=== PATIENT | female | born 1930 | race Caucasian/White ===

== ENCOUNTER 2017-05-26 15:08 | Outpatient (CLI) | payer MEDICARE, OTHER ==
[2017-05-26 13:25] LABS: BILIRUBIN,URINE NEGATIVE (NEGATIVE)
[2017-05-26 13:26] LABS: UA w/ MICROSCOPIC CHARGE YES
[2017-05-26 13:30] LABS: UR CULTURE IF IND INDICATED
[2017-05-26 13:32] LABS: WBC,URINE >25 /HPF (0-5)
== END 2017-05-26 15:09 | disposition home or self-care (01) ==
LOC: LAB.N 15:08
PROVIDERS: ATTEND Internal Medicine
DX: N30.00 Acute cystitis without hematuria (principal)
CPT/HCPCS: 81001; 81003; 87086

== ENCOUNTER 2017-09-02 10:32 | Outpatient (CLI) | payer MEDICARE, OTHER | END 2017-09-02 10:33 | disposition home or self-care (01) | LOC: LAB.N 10:32 | PROVIDERS: ATTEND Internal Medicine | DX: E03.9 Hypothyroidism, unspecified (principal) | CPT/HCPCS: 36415; 84443 ==

== ENCOUNTER 2018-03-28 11:37 | Outpatient (CLI) | payer MEDICARE, OTHER | END 2018-03-28 11:38 | disposition critical access hospital (66) | LOC: EMS 11:37 | PROVIDERS: ATTEND Surgery | DX: R55 Syncope and collapse (principal) | CPT/HCPCS: A0425; A0427 ==

== ENCOUNTER 2018-03-28 12:02 | Observation (INO) | payer MEDICARE, OTHER ==
--- NOTE | 2018-03-28 12:11 | ED Physician Documentation ---
History of Present Illness - Stated complaint Stated Complaint: Syncope - Chief complaint Chief Complaint: Cardiac - Additonal information Additional information: hx from pt 87 y/o f healthy no meds no allergies was at commissary with her and his caregiver became weak and grabbed the shelf for support caregiver lowered pt to the floor s injury she was completely unconscious for several minutes was breathing no seizure activity or incont EMS arrived and founf pt to be in NSR when they stood her up for orthodtatics her SBP dropped to 70s and she had recurrent sx, per EMS still NSR on tele suring the sx pt denies any recent ilnbess - no fever cough NVD black or bloody BM denies an pain - no MAURO CP AP states she has been eating and drinking normally Review of Systems Constitutional: denies: Fever Ears: denies: Ear pain Throat: denies: Sore throat Cardiac: denies: Chest pain / pressure, Palpitations Respiratory: denies: Dyspnea GI: denies: Abdominal Pain, Nausea, Vomiting, Diarrhea, Bloody / black stool : denies: Dysuria Musculoskeletal: denies: Neck pain, Back pain Neurologic: reports: Syncope. 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 HEENT: Tonsil/Adenoidectomy - Present Medications Home Medications: Ambulatory Orders Medication Instructions Recorded Confirmed Aspirin [Aspir-Low] 81 mg PO DAILY 03/22/16 03/28/18 Citalopram Hydrobromide 10 mg PO DAILY 03/28/18 03/28/18 [Citalopram HBr] Cyanocobalamin (Vitamin B-12) 5,000 mcg SL DAILY 03/28/18 03/28/18 [Vitamin B-12] Levothyroxine Sodium 75 mcg PO DAILY 03/28/18 03/28/18 - Allergies Allergies/Adverse Reactions: Allergies Allergy/AdvReac Type Severity Reaction Status Date / Time Sulfa (Sulfonamide Allergy Unknown Verified 03/28/18 12:08 Antibiotics) - Social History Does the pt smoke?: No Smoking Status: Never smoker Does the pt drink ETOH?: No Does the pt have substance abuse?: No - Immunizations Immunizations are current?: Yes PD ED PE NORMAL - Vitals Vital signs reviewed: Yes - General General: Alert and oriented X 3 - HEENT HEENT: Atraumatic, PERRL - Neck Neck: Supple, no meningeal sign - Cardiac Cardiac: RRR - Respiratory Respiratory: No respiratory distress, Clear bilaterally - Abdomen Abdomen: Soft, Non tender - Derm Derm: Normal color - Extremities Extremities: Normal ROM s pain - Neuro Neuro: Alert and oriented X 3, orderly 2-12 intact, No motor deficit, No sensory deficit, Normal speech Eye Opening: Spontaneous Motor: Obeys Commands Verbal: Oriented GCS Score: 15 Results - Vitals Vitals: Vital Signs - 24 hr 03/28/18 03/28/18 03/28/18 12:02 12:17 13:30 Temperature 35.8 C L Heart Rate 63 60 68 Respiratory 16 14 17 Rate Blood Pressure 127/50 L 127/50 L 130/66 O2 Saturation 97 99 97 Oxygen O2 Source Room air - EKG (time done) 1208 Rate: Rate (enter#) (65) Rhythm: NSR [place]: Normal Intervals: No: Prolonged NM (short) Ischemia: Other (bi[hasix T waves lateral) - Labs Labs: Laboratory Tests 03/28/18 03/28/18 03/28/18 12:47 12:47 12:47 WBC 5.9 RBC 4.55 Hgb 13.3 Hct 39.3 MCV 86.4 MCH 29.3 MCHC 33.9 RDW 14.1 Plt Count 193 MPV 8.8 Neut # (Auto) 3.3 Lymph # (Auto) 1.9 [place] # (Auto) 0.6 Eos # (Auto) 0.1 Baso # (Auto) 0.1 Absolute Nucleated RBC 0.00 Nucleated RBC % 0.0 Sodium 139 Potassium 3.9 Chloride 108 Carbon Dioxide 25 Anion Gap 6.0 BUN 19 Creatinine 1.4 H Estimated GFR (MDRD) 36 L Glucose 105 H Lactic Acid Calcium 8.9 Troponin I < 0.04 Urine Color Urine Clarity Urine pH Ur Specific [place] Urine Protein Urine Glucose (UA) Urine Ketones Urine Occult Blood Urine Nitrite Urine Bilirubin Urine Urobilinogen Ur Leukocyte Esterase Urine RBC Urine WBC Urine WBC Clumps Ur Epithelial Cells Ur Squamous Epith Cells Urine Bacteria Ur Microscopic Review Urine Culture Comments 03/28/18 03/28/18 12:47 13:25 WBC RBC Hgb Hct MCV MCH MCHC RDW Plt Count MPV Neut # (Auto) Lymph # (Auto) [place] # (Auto) Eos # (Auto) Baso # (Auto) Absolute Nucleated RBC Nucleated RBC % Sodium Potassium Chloride Carbon Dioxide Anion Gap BUN Creatinine Estimated GFR (MDRD) Glucose Lactic Acid 1.4 Calcium Troponin I Urine Color YELLOW Urine Clarity SL. CLOUDY Urine pH 7.0 Ur Specific [place] 1.015 Urine Protein TRACE Urine Glucose (UA) NEGATIVE Urine Ketones NEGATIVE Urine Occult Blood NEGATIVE Urine Nitrite POSITIVE H Urine Bilirubin NEGATIVE Urine Urobilinogen 0.2 (NORMAL) Ur Leukocyte Esterase MODERATE H Urine RBC 0-5 Urine WBC >25 H Urine WBC Clumps PRESENT Ur Epithelial Cells RARE Renal Tubular Ur Squamous Epith Cells FEW Squamous Urine Bacteria Many H Ur Microscopic Review INDICATED Urine Culture Comments INDICATED PD MEDICAL DECISION MAKING - ED course ED course: syncope better orthostatic in ED after IVF but merits tele echo etc pt is not excited to stay but her and caregiver are in agreement spoke to hospitalist at 1335 urine was pending when i spoke to hospitalist - it is + - lactate was neg, pt afebrile, doubt sepsis, blood cx pending, pt did get 1 L IVF in the ED - hospitalist started antibiotics - Sepsis Event Vital Signs: Vital Signs - 24 hr 03/28/18 03/28/18 03/28/18 12:02 12:17 13:30 Temperature 35.8 C L Heart Rate 63 60 68 Respiratory 16 14 17 Rate Blood Pressure 127/50 L 127/50 L 130/66 O2 Saturation 97 99 97 Oxygen O2 Source Room air Departure - Departure Disposition: ED Place in Observation Clinical Impression: Syncope Qualifiers: Syncope type: unspecified Qualified Code(s): R55 - Syncope and collapse UTI (urinary tract infection) Qualifiers: Urinary tract infection type: site unspecified Hematuria presence: without hematuria Qualified Code(s): N39.0 - Urinary tract infection, site not specified Condition: Good Discharge Date/Time: 03/28/18 14:50
[2018-03-28] MEDS ORDERED: SODIUM CHLORIDE 0.9% 1,000 ML IV ONE (12:14)
[2018-03-28 12:53] LABS: BASOPHILS # (AUTO) 0.1 10^3/uL (0.0-0.1); BASOPHILS % (AUTO) 1.3 %; EOSINOPHILS # (AUTO) 0.1 10^3/uL (0.0-0.7); EOSINOPHILS % (AUTO) 2.5 %; HGB - HEMOGLOBIN 13.3 g/dL (12.0-16.0); LYMPHOCYTES # (AUTO) 1.9 10^3/uL (1.5-3.5); LYMPHOCYTES % (AUTO) 31.4 %; MEAN CORPUSCULAR HEMOGLOBIN 29.3 pg (27.0-31.0); MEAN CORPUSCULAR HGB CONC 33.9 g/dL (32.0-36.0); MEAN CORPUSCULAR VOLUME 86.4 fL (81.0-99.0); MEAN PLATELET VOLUME 8.8 fL (7.9-10.8); MONOCYTES # (AUTO) 0.6 10^3/uL (0.0-1.0); MONOCYTES % (AUTO) 9.7 %; NEUTROPHILS # (AUTO) 3.3 10^3/uL (1.5-6.6); NEUTROPHILS % (AUTO) 55.1 %; PLT - PLATELET COUNT 193 10^3/uL (130-450); RED BLOOD COUNT 4.55 10^6/uL (4.20-5.40); RED CELL DISTRIBUTION WIDTH 14.1 % (12.0-15.0); WHITE BLOOD COUNT 5.9 x10^3/uL (4.8-10.8)
[2018-03-28 13:03] LABS: CALCIUM 8.9 mg/dL (8.5-10.3); CREATININE 1.4 mg/dL (0.4-1.0)
[2018-03-28 13:45] LABS: BILIRUBIN,URINE NEGATIVE (NEGATIVE); GLUCOSE, URINE (UA) NEGATIVE (NEGATIVE); KETONES,URINE (UA) NEGATIVE (NEGATIVE); LEUKOCYTE ESTERASE, URINE MODERATE (NEGATIVE); NITRITE,URINE POSITIVE (NEGATIVE); OCCULT BLOOD,URINE NEGATIVE (NEGATIVE); PROTEIN,URINE TRACE mg/dL (NEGATIVE); UROBILINOGEN,URINE 0.2 (NORMAL) E.U./dL (NORMAL)
[2018-03-28 13:46] LABS: CLARITY,URINE SL. CLOUDY (CLEAR)
[2018-03-28] MEDS ORDERED: SODIUM CHLORIDE FLUSH 0.9% 10 ML SYRINGE IVP PRN (13:56)
[2018-03-28 13:58] LABS: WBC CLUMPS,URINE PRESENT
[2018-03-28 13:59] LABS: BACTERIA,URINE Many /HPF (None Seen); RBC,URINE 0-5 /HPF (0-5); SQUAMOUS EPITHELIAL CELL,UR FEW Squamous (<= Few)
[2018-03-28] MEDS ORDERED: TEMAZEPAM 15 MG CAPSULE PO PRN (14:01)
[2018-03-28] MEDS ORDERED: ACETAMINOPHEN 325 MG TABLET PO PRN (14:01)
[2018-03-28] MEDS ORDERED: ASPIRIN EC 81 MG TABLET PO PRN (14:06)
[2018-03-28] MEDS: SODIUM CHLORIDE FLUSH 0.9% 10 ML SYRINGE IVP SCH (16:46)
[2018-03-28] MEDS: DEXTROSE 5%-0.9% NACL 1,000 ML IV SCH ×2 (16:46→23:19)
[2018-03-28] MEDS: NITROFURANTOIN MACRO 100 MG CAPSULE PO SCH (20:09)
--- NOTE | 2018-03-29 02:14 | HISTORY & PHYSICAL EXAMINATION ---
DATE OF SERVICE: 03/28/2018 Physician: Trish Davis MD HISTORY OF PRESENT ILLNESS: This is an 87-year-old, white female with a history of hypothyroidism, on Synthroid, and she takes an aspirin a day. She otherwise has no significant past medical history. Today, while standing, she reported to her 's caregiver that she was feeling lightheaded and woozy, and started to fall with syncope. The caregiver, however, brought her down to the ground gently. She was apparently syncopal with unconsciousness for about 2 minutes, but was breathing on her own. Paramedics were called. By report, they had blood pressures documented of 70 systolic, and stated that she had "normal sinus rhythm." They do not state she had tachycardia. She remembers awakening afterwards and being in the ambulance and in the emergency room, and feels fine currently. In the emergency room, her blood pressure was still low and she was started on fluids, and then the first improved blood pressure was 129 systolic. Patient has never had this before. She denies any lightheadedness or palpitations ever. She denies chest pain or shortness of breath. There are no new medications. She denies any nausea, vomiting or diarrhea. She denies a fever or dysuria or any pain anywhere that is new. Her admission lab work shows that she has an abnormal urinalysis, suggesting a UTI. She is being placed in Observation for a syncopal evaluation and UTI treatment. PAST MEDICAL HISTORY: Hypothyroidism ALLERGIES: SULFA. MEDICATIONS AT HOME 1. Levothyroxine 75 mcg daily. 2. Baby aspirin daily. There is a question of whether she takes: 1. Citalopram at home 10 mg daily. 2. Vitamin B12 5000 mcg sublingual daily. FAMILY HISTORY: No inherited diseases. She has 1 son who is healthy. SOCIAL HISTORY: She is a nonsmoker who never smoked, drinks very rare alcohol. No illicit drug use. She lives with her . She had stopped driving approximately a year and a half ago at the recommendation of her PCP, and she does not know why that was recommended. REVIEW OF SYSTEMS: A comprehensive review of systems was performed and the pertinent positives are in the HPI, the rest are negative. PHYSICAL EXAMINATION GENERAL: Elderly, white female. She is in no distress, sitting upright in bed. VITAL SIGNS: Blood pressure 145/68, pulse of 69, respiratory rate 14, room air saturation 97%, afebrile. HEENT: Unremarkable. NECK: Without JVD or carotid bruits. CHEST: Clear. CARDIOVASCULAR: Heart sounds normal. No murmurs, no gallop. ABDOMEN: Soft with positive bowel sounds, nontender. No organomegaly. EXTREMITIES: No clubbing, cyanosis, edema. NEUROLOGIC: Intact. LABORATORIES: Normal electrolytes. BUN 19, creatinine 1.4. She runs creatinines of 1.3 usually. Normal lactic acid level of 1.4. Not detectable troponin. White blood count, MCV and platelet count all normal. No INR was done. Urinalysis showed positive nitrites, moderate leukocyte esterase, greater than 25 white blood cells and many bacteria, and a culture is indicated. No chest x-ray was done. EKG: Normal sinus rhythm and short [place] interval of 80 milliseconds, but in some leads the NJ interval is 120. She has T-wave abnormality in V4 through V6, in that it is biphasic. There was no old EKG available for comparison. IMPRESSION/DIAGNOSES 1. Syncope. 2. UTI. 3. Hypotension, without a compensatory tachycardia, suggesting chronotropic incompetence. 4. Abnormal EKG. 5. Chronic kidney disease. PLAN: Place the patient in Observation. Start telemetry. We will order orthostatic vital sign checks. Cycle troponins x3. Obtain an Echo. Begin antibiotics, Macrodantin p.o. will be used, and await the urine culture. Begin IV fluids which were started in the ER, continue these. Follow her daily electrolytes. DEEP VENOUS THROMBOSIS PROPHYLAXIS: SCDs. CODE STATUS: FULL CODE. ATTESTATION: Patient is expected to be discharged or transferred to another facility within 96 hours: Yes. TD: 03/28/2018 21:18 TAZ
[2018-03-29] MEDS: SODIUM CHLORIDE FLUSH 0.9% 10 ML SYRINGE IVP SCH ×2 (03:14→08:36)
[2018-03-29] MEDS: DEXTROSE 5%-0.9% NACL 1,000 ML IV SCH (05:17)
[2018-03-29] MEDS ORDERED: LEVOTHYROXINE 75 MCG TABLET PO SCH (07:00)
[2018-03-29 07:51] VITALS: BP 145/69
[2018-03-29] MEDS: NITROFURANTOIN MACRO 100 MG CAPSULE PO SCH (08:34)
[2018-03-29] MEDS ORDERED: FAMOTIDINE 20 MG TABLET PO SCH (09:00)
[2018-03-29] MEDS ORDERED: POLYETHYLENE GLYCOL 3350 17 GM PACKET PO SCH (09:00)
[2018-03-29 09:54] LABS: CALCIUM 8.5 mg/dL (8.5-10.3); CREATININE 0.9 mg/dL (0.4-1.0)
[2018-03-29] MEDS ORDERED: POTASSIUM CHLORIDE 20 MEQ TABLET PO ONE (10:15)
--- NOTE | 2018-03-29 11:38 | Discharge Plan ---
Discharge Plan Disposition: 01 Home, Self Care Condition: Stable Prescriptions: Nitrofurantoin [Macrobid] 100 mg PO BID #12 capsule Diet: Regular Activity Restrictions: Activity as Tolerated Shower Restrictions: No Driving Restrictions: Yes Instruction Topics: Nitrofurantoin tablets or capsules, UTI Additional Instructions or Follow Up instructions: You were in the hospital, after you fainted. We found that you were dehydrated and have a urinary tract infection. You should hydrate yourself more. Drink fluids more frequently. Resume all your pre-hospital medications. Take the antibiotic tablets until they are all finished (6 more days). See your PCP in follow-up in 5-7 days. No Smoking: If you smoke, Please STOP! Call for help. Follow-up with: Griselda Mena MD [Primary Care Provider] -
--- NOTE | 2018-04-03 08:45 | DISCHARGE SUMMARY ---
Physician: Trish Davis MD DATE OF ADMISSION: 03/28/2018 DATE OF DISCHARGE: 03/29/2018 HISTORY OF PRESENT ILLNESS: This is an 87-year-old white female with a history of hypothyroidism. The patient only takes baby aspirin and levothyroxine. The patient was standing, and reported the she felt woozy, lightheadedness, and was brought down to floor by a bystander (her 's caregiver). There was no fall or trauma. She was unconscious, however, for about two minutes, and paramedics were called and found her to have a systolic blood pressure of 70, and to be in "normal sinus rhythm." She was brought to the emergency room, and was resuscitated with IV fluids, which improved her blood pressure to 129 systolic. She was placed in observation for evaluation of the syncope. HOSPITAL COURSE/DISCHARGE DIAGNOSES: 1. Syncope: The patient had never had a similar event. Telemetry showed that she had no tachycardias or tachy-dysrhythmias. Despite IV fluids overnight , she had mild orthostasis, and was felt to be dehydrated, as the most likely cause of the syncope. There was concern that the paramedics did not state that she was tachycardic when she had the low blood pressure. This is concerning in that she may have had chronotropic incompetence, and be a candidate for a pacemaker in the future. 2. Urinary tract infection: The patient's urinalysis showed moderate leukocyte esterase, positive nitrites, greater than 25 white blood cells, and many bacteria. She was started on oral Macrodantin for this. After her discharge, the urine culture has now grown E. coli, and it is sensitive to Macrodantin. The patient was told to take six more days of the antibiotic at the time of discharge. 3. Hypotension: This was probably multifactorial, related to her UTI infection, and possible volume depletion. Please note the above concern about the heart rate. 4. Abnormal EKG: The patient's admission EKG showed normal sinus rhythm, very short AK interval of 80 milliseconds, and abnormal biphasic T-waves in leads v4 and v5. Her T-waves in leads 1 and aVL are flat. This should be evaluated by cardiology, or further testing such as stress test. The patient had a resting Echocardiogram done while here, which showed normal LVEF of 60 to 65%, normal chamber sizes, mild aortic regurgitation, mild tricuspid regurgitation, and normal PA pressure of 28 mmHg. 5. Chronic kidney disease: The patient's baseline creatinine was 1.4, improved to 0.9 after hydration. LABORATORY DATA/IMAGING: Reviewed and summarized above. ALLERGIES: SULFA. DISCHARGE MEDICATIONS: 1. Macrobid 100 mg p.o. b.i.d. for 6 days. 2. Synthroid 75 mcg daily. 3. Baby aspirin daily. 4. It is unclear if she takes citalopram 10 mg daily. 5. Vitamin B12 5000 mcg daily. PHYSICAL EXAMINATION at discharge: stable. VITAL SIGNS: Blood pressure 145/69, heart rate 69, in sinus rhythm, afebrile, room air saturation 99%. HEENT: Unremarkable. NECK: Without JVD or carotid bruits. CHEST: Clear. Heart sounds normal. ABDOMEN: Soft and benign. EXTREMITIES: Without edema. NEUROLOGIC: Intact. FOLLOWUP: The patient was advised to see her PCP in one to two weeks in followup. Please consider a Cardiology evaluation in the future regarding the abnormal EKG and orthostasis. CODE STATUS: FULL CODE: TIME REQUIRED TO COMPLETE THIS ENTIRE DISCHARGE, CHART REVIEW, MEDICATION ORDERS , PATIENT EDUCATION AND DICTATION: 30 minutes. cc: Griselda Mena MD TD: 04/03/2018 08:34 MTDTeresa
== END 2018-03-29 12:15 | disposition home or self-care (01) ==
LOC: EDUNIT# → ED 12:02 → OBS 13:47
PROVIDERS: ADMIT Internal Medicine; ATTEND Internal Medicine
DX: R55 Syncope and collapse (principal); N39.0 Urinary tract infection, site not specified; B96.20 Unspecified Escherichia coli [E. coli] as the cause of diseases classified elsewhere; I95.9 Hypotension, unspecified; R94.31 Abnormal electrocardiogram [ECG] [EKG]; I08.2 Rheumatic disorders of both aortic and tricuspid valves; N18.9 Chronic kidney disease, unspecified; E03.9 Hypothyroidism, unspecified; Z79.82 Long term (current) use of aspirin; Z79.899 Other long term (current) drug therapy; E86.0 Dehydration
CPT/HCPCS: 36415; 80048; 81001; 83605; 84484; 85025; 87040; 87086; 87181; 93005; 93306; 96360; 96361; 99284; A9270; G0378; 81003

== ENCOUNTER 2018-12-17 11:10 | Outpatient (CLI) | payer MEDICARE, OTHER | END 2018-12-17 11:11 | disposition critical access hospital (66) | LOC: EMS 11:10 | PROVIDERS: ATTEND Surgery | DX: R53.1 Weakness (principal); W19.XXXA Unspecified fall, initial encounter; Y92.003 Bedroom of unspecified non-institutional (private) residence as the place of occurrence of the external cause ==

== ENCOUNTER 2018-12-17 11:28 | Emergency (ER) | payer MEDICARE, OTHER ==
[2018-12-17 12:05] LABS: BILIRUBIN,URINE NEGATIVE (NEGATIVE); GLUCOSE, URINE (UA) NEGATIVE (NEGATIVE); KETONES,URINE (UA) TRACE mg/dL (NEGATIVE); LEUKOCYTE ESTERASE, URINE NEGATIVE (NEGATIVE); NITRITE,URINE NEGATIVE (NEGATIVE); OCCULT BLOOD,URINE MODERATE (NEGATIVE); PH,URINE 5.5 PH (5.0-7.5); PROTEIN,URINE TRACE mg/dL (NEGATIVE); UROBILINOGEN,URINE 0.2 (NORMAL) E.U./dL (NORMAL)
[2018-12-17 12:06] LABS: CLARITY,URINE CLEAR (CLEAR)
[2018-12-17 12:18] LABS: BACTERIA,URINE Moderate /HPF (None Seen); SQUAMOUS EPITHELIAL CELL,UR RARE Squamous (<= Few)
[2018-12-17 12:22] LABS: BASOPHILS % (AUTO) 0.4 %; HGB - HEMOGLOBIN 13.3 g/dL (12.0-16.0); LYMPHOCYTES # (AUTO) 0.9 10^3/uL (1.5-3.5); LYMPHOCYTES % (AUTO) 8.7 %; MEAN CORPUSCULAR HEMOGLOBIN 27.6 pg (27.0-31.0); MEAN CORPUSCULAR HGB CONC 32.6 g/dL (32.0-36.0); MEAN CORPUSCULAR VOLUME 84.6 fL (81.0-99.0); MEAN PLATELET VOLUME 8.3 fL (7.9-10.8); MONOCYTES # (AUTO) 0.9 10^3/uL (0.0-1.0); MONOCYTES % (AUTO) 8.6 %; NEUTROPHILS # (AUTO) 8.5 10^3/uL (1.5-6.6); NEUTROPHILS % (AUTO) 82.3 %; PLT - PLATELET COUNT 241 10^3/uL (130-450); RED BLOOD COUNT 4.82 10^6/uL (4.20-5.40); WHITE BLOOD COUNT 10.3 x10^3/uL (4.8-10.8)
[2018-12-17 12:33] LABS: ALBUMIN 3.8 g/dL (3.2-5.5); ALBUMIN/GLOBULIN RATIO 1.3 (1.0-2.2); BILIRUBIN,TOTAL 0.9 mg/dL (0.2-1.0); CALCIUM 9.5 mg/dL (8.5-10.3); CREATININE 1.3 mg/dL (0.4-1.0); TOTAL PROTEIN 6.8 g/dL (6.7-8.2)
[2018-12-17] MEDS ORDERED: LIDOCAINE 2% 10 ML MDV SUBQ STA (13:11)
--- NOTE | 2018-12-17 13:18 | ED Physician Documentation ---
History of Present Illness - Stated complaint Stated Complaint: FALL - Chief complaint Chief Complaint: UTI - History obtained from History obtained from: Patient, Caregiver - History of Present Illness Timing: Today Pain level max: 3 Pain level now: 3 - Additonal information Additional information: 88 year old female slid out of bed this am and couldn't get up off the floor. States that this happened last time she had a UTI. No head injury. No ALOC. No LOC. L 3rd finger pain. NVI. nothing makes this better or worse. 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 HEENT: Tonsil/Adenoidectomy - Present Medications Home Medications: Ambulatory Orders Medication Instructions Recorded Confirmed Aspirin [Aspir-Low] 81 mg PO DAILY 03/22/16 03/28/18 Citalopram Hydrobromide 10 mg PO DAILY 03/28/18 03/28/18 [Citalopram HBr] Cyanocobalamin (Vitamin B-12) 5,000 mcg SL DAILY 03/28/18 03/28/18 [Vitamin B-12] Levothyroxine Sodium 75 mcg PO DAILY 03/28/18 03/28/18 Nitrofurantoin [Macrobid] 100 mg PO BID #12 capsule 03/29/18 Cephalexin [Keflex] 500 mg PO Q6H #28 capsule 12/17/18 - Allergies Allergies/Adverse Reactions: Allergies Allergy/AdvReac Type Severity Reaction Status Date / Time Sulfa (Sulfonamide Allergy Unknown Verified 12/17/18 11:32 Antibiotics) - Social History Does the pt smoke?: No Smoking Status: Never smoker Does the pt drink ETOH?: No Does the pt have substance abuse?: No - Immunizations Immunizations are current?: Yes PD ED PE NORMAL - Vitals Vital signs reviewed: Yes - General General: No acute distress, Well developed/nourished, Other (Alert, oriented to person and place) - HEENT HEENT: Atraumatic, PERRL, Ears normal, Moist mucous membranes, Pharynx benign - Neck Neck: Supple, no meningeal sign, No bony TTP - Cardiac Cardiac: RRR, Strong equal pulses - Respiratory Respiratory: No respiratory distress, Clear bilaterally - Abdomen Abdomen: Soft, Non tender, Non distended - Back Back: No CVA TTP, No spinal TTP - Derm Derm: Warm and dry - Extremities Extremities: Other (Left third digit is stuck in flexion at the PIP joint. Neurovascularly intact. 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, No motor deficit, No sensory deficit, Normal speech Eye Opening: Spontaneous Motor: Obeys Commands Verbal: Oriented GCS Score: 15 - Psych Psych: Normal mood, Normal affect Results - Vitals Vitals: Vital Signs - 24 hr 12/17/18 12/17/18 12/17/18 11:29 13:32 14:28 Temperature 36.9 C Heart Rate 90 86 79 Respiratory 21 16 Rate Blood Pressure 136/68 H 139/74 H 141/70 H O2 Saturation 97 98 95 12/17/18 15:27 Temperature 35.9 C L Heart Rate Respiratory 20 Rate Blood Pressure O2 Saturation Oxygen O2 Source Room air - Labs Labs: Laboratory Tests 12/17/18 12/17/18 12/17/18 11:45 12:13 12:13 WBC 10.3 RBC 4.82 Hgb 13.3 Hct 40.8 MCV 84.6 MCH 27.6 MCHC 32.6 RDW 14.0 Plt Count 241 MPV 8.3 Neut # (Auto) 8.5 H Lymph # (Auto) 0.9 L [place] # (Auto) 0.9 Eos # (Auto) 0.0 Baso # (Auto) 0.0 Absolute Nucleated RBC 0.00 Nucleated RBC % 0.0 Sodium 141 Potassium 4.0 Chloride 105 Carbon Dioxide 22 Anion Gap 14.0 H BUN 27 H Creatinine 1.3 H Estimated GFR (MDRD) 39 L Glucose 130 H Calcium 9.5 Total Bilirubin 0.9 AST 46 H ALT 20 Alkaline Phosphatase 79 Total Protein 6.8 Albumin 3.8 Globulin 3.0 Albumin/Globulin Ratio 1.3 Lipase 23 Urine Color YELLOW Urine Clarity CLEAR Urine pH 5.5 Ur Specific [place] 1.025 Urine Protein TRACE Urine Glucose (UA) NEGATIVE Urine Ketones TRACE Urine Occult Blood MODERATE H Urine Nitrite NEGATIVE Urine Bilirubin NEGATIVE Urine Urobilinogen 0.2 (NORMAL) Ur Leukocyte Esterase NEGATIVE Urine RBC 6-10 H Urine WBC 4-5 Ur Squamous Epith Cells RARE Squamous Urine Bacteria Moderate H Ur Microscopic Review INDICATED Urine Culture Comments INDICATED - Rads (name of study) Left third finger x-ray Radiology: Prelim report reviewed, EMP read contemporaneously, See rad report (Bones are osteopenic. The third MCP, PIP and DIP joints are flexed. No acute fracture or dislocation identified. Mild to moderate degenerative changes. ) PD MEDICAL DECISION MAKING - ED course Complexity details: reviewed results, re-evaluated patient, considered differential, d/w patient ED course: Patient with a UTI. Given Rocephin. No head injury. No altered mental status. Ambulating well in the emergency department. Lidocaine was used as a digital block on the finger and then the finger was straightened. Will place in a splint for comfort. Unclear what happened to the finger. We will have it reevaluated with her doctor. Patient and family counseled regarding signs and symptoms for which I believe and urgent re-evaluation would be necessary. Patient with good understanding of and agreement to plan and is comfortable going home at this time This document was made in part using voice recognition software. While efforts are made to proofread this document, sound alike and grammatical errors may occur. Departure - Departure Disposition: 01 Home, Self Care Clinical Impression: UTI (urinary tract infection) Qualifiers: Urinary tract infection type: acute cystitis Hematuria presence: without hematuria Qualified Code(s): N30.00 - Acute cystitis without hematuria Sprain of left middle finger Qualifiers: Encounter type: initial encounter Sprain of finger site: interphalangeal joint Qualified Code(s): S63.633A - Sprain of interphalangeal joint of left middle finger, initial encounter Condition: Good Instructions: ED Sprain Finger, ED UTI Cystitis Female Follow-Up: Griselda Mena MD [Primary Care Provider] - Within 1 week Prescriptions: Cephalexin [Keflex] 500 mg PO Q6H #28 capsule Comments: Take all antibiotics until gone. Return if she worsens. Remove the splint in 1 week with her doctor. There are no fractures on her x-ray today Discharge Date/Time: 12/17/18 15:30
[2018-12-17] MEDS ORDERED: cefTRIAXone 1 GM VIAL IVP STA (13:44)
--- NOTE | 2018-12-17 13:59 | XRAY Report ---
Reason: 3rd finger deformity Procedure Date: 12/17/2018 Accession Number: [id number] / [id number] Procedure: XR - Finger(s) LT CPT Code: FULL RESULT: EXAM: LEFT THIRD DIGIT RADIOGRAPHY EXAM DATE: 12/17/2018 01:10 PM. CLINICAL HISTORY: 3rd finger deformity. COMPARISON: None. TECHNIQUE: 3 views. FINDINGS impression: Bones are osteopenic. The third MCP, PIP and DIP joints are flexed. No acute fracture or dislocation identified. Mild to moderate degenerative changes. RADIA
[2018-12-17 14:28] VITALS: BP 141/70
== END 2018-12-17 15:30 | disposition home or self-care (01) ==
LOC: EDUNIT# → ED 11:28
DX: N30.00 Acute cystitis without hematuria (principal); S63.633A Sprain of interphalangeal joint of left middle finger, initial encounter; W06.XXXA Fall from bed, initial encounter; F03.90 Unspecified dementia, unspecified severity, without behavioral disturbance, psychotic disturbance, mood disturbance, and anxiety
CPT/HCPCS: 36415; 73140; 80053; 81001; 81003; 83690; 85025; 87086; 87181; 96374; 99283; 99284

== ENCOUNTER 2019-09-05 14:37 | Outpatient (CLI) | payer MEDICARE, OTHER ==
[2019-09-06 13:31] LABS: CALCIUM 9.2 mg/dL (8.5-10.3); CREATININE 1.2 mg/dL (0.4-1.0)
== END 2019-09-05 14:38 | disposition home or self-care (01) ==
LOC: LAB 14:37
PROVIDERS: ATTEND Internal Medicine
DX: E03.9 Hypothyroidism, unspecified (principal)
CPT/HCPCS: 36415; 80048; 84443

== ENCOUNTER 2020-01-21 11:14 | Outpatient (CLI) | payer MEDICARE, OTHER ==
--- NOTE | 2020-01-21 12:31 | XRAY Report ---
PROCEDURE: Chest 2 View X-Ray INDICATIONS: COUGH TECHNIQUE: 2 view(s) of the chest. COMPARISON: None. FINDINGS: Surgical changes and devices: None. Lungs and pleura: No pleural effusions or pneumothorax. Bibasilar scarring/atelectasis is seen. No d efinite focal infiltrate. Hyperinflation and chronic emphysematous changes are noted. Mediastinum: Mediastinal contours are normal. Heart size is normal. Bones and chest wall: No suspicious bony abnormalities. Soft tissues appear unremarkable. IMPRESSION: COPD and bibasilar scarring/atelectasis. No focal infiltrate. No pleural effusion or pne umothorax. Reviewed by: Lobito Arreola MD on 01/21/2020 12:29 PM PDT Approved by: Lobito Arreola MD on 01/21/2020 12:29 PM PDT Station ID: [id number]
== END 2020-01-21 11:15 | disposition home or self-care (01) ==
LOC: DI 11:14
PROVIDERS: ATTEND Internal Medicine
DX: J44.9 Chronic obstructive pulmonary disease, unspecified (principal); J98.11 Atelectasis
CPT/HCPCS: 71046

== ENCOUNTER 2021-02-26 18:52 | Outpatient (CLI) | payer MEDICARE, OTHER | END 2021-02-26 18:53 | disposition critical access hospital (66) | LOC: EMS 18:52 | DX: R40.4 Transient alteration of awareness (principal) | CPT/HCPCS: A0425; A0427 ==

== ENCOUNTER 2021-02-26 19:06 | Inpatient (IN) | payer MEDICARE, OTHER ==
--- NOTE | 2021-02-26 19:19 | ED Physician Documentation ---
PD HPI ALTERED MENTAL STATUS - Stated complaint Stated Complaint: AMS - History obtained from History obtained from: EMS - Additional information Additional information: 89-year-old woman presents by ambulance. All of the history is from the shower enclosure installer on arrival because the patient is altered. Reportedly the fire department went out for a lift assist and then she became hypotensive and hypoxic down into the 70s with a GCS of 7. With a small fluid bolus and placing her in Trendelenburg she has improved to GCS 13 and her sats of, but she is noted to be tachypneic. 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 HEENT: Tonsil/Adenoidectomy - Present Medications Home Medications: Ambulatory Orders Medication Instructions Recorded Confirmed Aspirin [Aspir-Low] 81 mg PO DAILY 03/22/16 03/28/18 Levothyroxine Sodium 75 mcg PO DAILY 03/28/18 02/26/21 - Allergies Allergies/Adverse Reactions: Allergies Allergy/AdvReac Type Severity Reaction Status Date / Time Sulfa (Sulfonamide Allergy Unknown Verified 02/26/21 19:21 Antibiotics) - Social History Does the pt smoke?: No Smoking Status: Never smoker Does the pt drink ETOH?: No Does the pt have substance abuse?: No - Immunizations Immunizations are current?: Yes PD ED PE NORMAL - Vitals Vital signs reviewed: Yes - General General: Other (She is alert and oriented to person and place but not time, she thinks it is 1934, nor events.) - HEENT HEENT: PERRL - Neck Neck: Supple, no meningeal sign, No bony TTP - Cardiac Cardiac: RRR, No murmur - Respiratory Respiratory: Other (Possibly diminished at the right base anteriorly) - Abdomen Abdomen: Normal bowel sounds, Soft, Non tender - Back Back: No CVA TTP, No spinal TTP - Derm Derm: Normal color, Warm and dry - Extremities Extremities: Other (Potential mild tenderness of the left calf) - 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 Eye Opening: To Voice Motor: Obeys Commands Verbal: Confused GCS Score: 13 Results - Vitals Vitals: Vital Signs - 24 hr 02/26/21 02/26/21 02/26/21 19:21 19:27 19:43 Temperature 36.5 C 36.5 C Heart Rate 120 H 120 H 110 H Respiratory 22 22 18 Rate Blood Pressure 122/93 H 122/93 H 126/85 H O2 Saturation 100 100 97 02/26/21 02/26/21 02/26/21 20:13 20:24 20:43 Temperature Heart Rate 92 108 H 89 Respiratory 18 19 17 Rate Blood Pressure 126/79 128/80 109/53 L O2 Saturation 98 97 98 02/26/21 21:43 Temperature 36.6 C Heart Rate 88 Respiratory 18 Rate Blood Pressure 110/53 L O2 Saturation 99 Oxygen O2 Source Room air - Labs Labs: Laboratory Tests 02/26/21 02/26/21 02/26/21 19:00 19:22 19:22 WBC 18.3 H RBC 4.59 Hgb 9.9 L Hct 34.8 L MCV 75.8 L MCH 21.6 L MCHC 28.4 L RDW 19.9 H Plt Count 261 MPV 10.9 H Neut # (Auto) 12.4 H Lymph # (Auto) 4.5 H [place] # (Auto) 0.6 Eos # (Auto) 0.1 Baso # (Auto) 0.1 Absolute Nucleated RBC 0.02 Nucleated RBC % 0.1 Manual Slide Review Indicated Platelet Estimate NORMAL (130-450,000) Platelet Morphology NORMAL APPEARANCE RBC Morph Micro Appear 1+ OVALOCYTES Sodium 139 Potassium 4.8 Chloride 105 Carbon Dioxide 14 L Anion Gap 20.0 H BUN 47 H Creatinine 2.1 H Estimated GFR (MDRD) 22 L Glucose 236 H Lactic Acid Calcium 8.3 L Total Bilirubin 0.7 AST 106 H ALT 54 Alkaline Phosphatase 147 H Total Protein 6.0 L Albumin 2.3 L Globulin 3.7 Albumin/Globulin Ratio 0.6 L Urine Color YELLOW Urine Clarity CLOUDY Urine pH 6.0 Ur Specific [place] 1.015 Urine Protein 30 H Urine Glucose (UA) NEGATIVE Urine Ketones NEGATIVE Urine Occult Blood MODERATE H Urine Nitrite POSITIVE H Urine Bilirubin NEGATIVE Urine Urobilinogen 0.2 (NORMAL) Ur Leukocyte Esterase LARGE H Urine RBC 11-25 H Urine WBC >25 H Ur Squamous Epith Cells NONE SEEN Urine Bacteria Many H Urine Culture Comments INDICATED Nasal Adenovirus (PCR) Nasal B. parapertussis DNA (PCR) Nasal Coronavir 229E PCR Nasal Coronavir HKU1 PCR Nasal Coronavir NL63 PCR Nasal Coronavir OC43 PCR Nasal Enterovir/Rhinovir PCR Nasal Influenza B PCR Nasal Influenza A PCR Nasal Parainfluen 1 PCR Nasal Parainfluen 2 PCR Nasal Parainfluen 3 PCR Nasal Parainfluen 4 PCR Nasal RSV (PCR) Nasal B.pertussis DNA PCR Nasal C.pneumoniae (PCR) [place] Human Metapneumo PCR Nasal M.pneumoniae (PCR) Nasal SARS-CoV-2 (PCR) 02/26/21 02/26/21 19:22 19:30 WBC RBC Hgb Hct MCV MCH MCHC RDW Plt Count MPV Neut # (Auto) Lymph # (Auto) [place] # (Auto) Eos # (Auto) Baso # (Auto) Absolute Nucleated RBC Nucleated RBC % Manual Slide Review Platelet Estimate Platelet Morphology RBC Morph Micro Appear Sodium Potassium Chloride Carbon Dioxide Anion Gap BUN Creatinine Estimated GFR (MDRD) Glucose Lactic Acid > 10.0 H* Calcium Total Bilirubin AST ALT Alkaline Phosphatase Total Protein Albumin Globulin Albumin/Globulin Ratio Urine Color Urine Clarity Urine pH Ur Specific [place] Urine Protein Urine Glucose (UA) Urine Ketones Urine Occult Blood Urine Nitrite Urine Bilirubin Urine Urobilinogen Ur Leukocyte Esterase Urine RBC Urine WBC Ur Squamous Epith Cells Urine Bacteria Urine Culture Comments Nasal Adenovirus (PCR) NOT DETECTED Nasal B. parapertussis DNA (PCR) NOT DETECTED Nasal Coronavir 229E PCR NOT DETECTED Nasal Coronavir HKU1 PCR NOT DETECTED Nasal Coronavir NL63 PCR NOT DETECTED Nasal Coronavir OC43 PCR NOT DETECTED Nasal Enterovir/Rhinovir PCR NOT DETECTED Nasal Influenza B PCR NOT DETECTED Nasal Influenza A PCR NOT DETECTED Nasal Parainfluen 1 PCR NOT DETECTED Nasal Parainfluen 2 PCR NOT DETECTED Nasal Parainfluen 3 PCR NOT DETECTED Nasal Parainfluen 4 PCR NOT DETECTED Nasal RSV (PCR) NOT DETECTED Nasal B.pertussis DNA PCR NOT DETECTED Nasal C.pneumoniae (PCR) NOT DETECTED [place] Human Metapneumo PCR NOT DETECTED Nasal M.pneumoniae (PCR) NOT DETECTED Nasal SARS-CoV-2 (PCR) NOT DETECTED PD MEDICAL DECISION MAKING - ED course ED course: This is an 89-year-old woman who presents with an acute encephalopathy, and she was hypotensive on scene. Work-up demonstrates that she has severe lactic acidosis and sepsis from a urinary source with obstructive pyelonephritis on the left. I had a long talk with her POA, her son Lance who is available by phone. He is in [place]. We discussed that her prognosis is poor regardless, but ideal care would include transfer to a tertiary facility for consideration of nephrostomy or, given the acuity of her illness. He pondered it for quite some time and does not think his mom would want any advanced interventions or surgeries and prefers us to keep her here with IV antibiotics and fluids but with comfort as the goal. He understands that given the profundity of her lactic acidosis her prognosis is very guarded. Confirms DNR/DNI status. Spoke with Dr. Davis for admission at 9:52 PM. - Critical Care Time(min): 40 Time Includes: Direct patient care, Review records, Reassess patient, Document care, Coordinate care, Medical consult, Family consult for tx dec Data interpretation: Labs, Pulse ox Procedures included in critical care time: Peripheral IV Departure - Departure Disposition: 66 [facility] DC/Xfer Clinical Impression: Septic shock, Obstructive pyelonephritis, Encephalopathy acute Condition: Critical Discharge Date/Time: 02/26/21 22:48
[2021-02-26] MEDS ORDERED: IOPAMIDOL-300 100 ML VIAL ONE (19:21)
[2021-02-26 19:29] LABS: BASOPHILS # (AUTO) 0.1 10^3/uL (0.0-0.1); BASOPHILS % (AUTO) 0.3 %; EOSINOPHILS # (AUTO) 0.1 10^3/uL (0.0-0.7); EOSINOPHILS % (AUTO) 0.5 %; HCT - HEMATOCRIT 34.8 % (37.0-47.0); HGB - HEMOGLOBIN 9.9 g/dL (12.0-16.0); LYMPHOCYTES # (AUTO) 4.5 10^3/uL (1.5-3.5); LYMPHOCYTES % (AUTO) 24.7 %; MEAN CORPUSCULAR HEMOGLOBIN 21.6 pg (27.0-31.0); MEAN CORPUSCULAR HGB CONC 28.4 g/dL (32.0-36.0); MEAN CORPUSCULAR VOLUME 75.8 fL (81.0-99.0); MEAN PLATELET VOLUME 10.9 fL (7.9-10.8); MONOCYTES # (AUTO) 0.6 10^3/uL (0.0-1.0); MONOCYTES % (AUTO) 3.3 %; NEUTROPHILS # (AUTO) 12.4 10^3/uL (1.5-6.6); NEUTROPHILS % (AUTO) 67.7 %; NRBC ABSOLUTE COUNT (AUTO) 0.02 x10^3/uL; NUCLEATED RED BLOOD CELLS AUTO 0.1 /100WBC; PLT - PLATELET COUNT 261 10^3/uL (130-450); RED BLOOD COUNT 4.59 10^6/uL (4.20-5.40); RED CELL DISTRIBUTION WIDTH 19.9 % (12.0-15.0); WHITE BLOOD COUNT 18.3 x10^3/uL (4.8-10.8)
[2021-02-26 19:32] LABS: SLIDE REVIEW? Indicated
[2021-02-26 19:46] LABS: ALBUMIN 2.3 g/dL (3.2-5.5); ALBUMIN/GLOBULIN RATIO 0.6 (1.0-2.2); BILIRUBIN,TOTAL 0.7 mg/dL (0.2-1.0); CALCIUM 8.3 mg/dL (8.5-10.3); CREATININE 2.1 mg/dL (0.4-1.0); POTASSIUM 4.8 mmol/L (3.5-5.0)
[2021-02-26 19:46] LABS: BILIRUBIN,URINE NEGATIVE (NEGATIVE); GLUCOSE, URINE (UA) NEGATIVE (NEGATIVE); KETONES,URINE (UA) NEGATIVE (NEGATIVE); LEUKOCYTE ESTERASE, URINE LARGE (NEGATIVE); NITRITE,URINE POSITIVE (NEGATIVE); OCCULT BLOOD,URINE MODERATE (NEGATIVE); PROTEIN,URINE 30 mg/dL (NEGATIVE); UROBILINOGEN,URINE 0.2 (NORMAL) E.U./dL (NORMAL)
[2021-02-26 19:48] LABS: CLARITY,URINE CLOUDY (CLEAR)
[2021-02-26 19:51] LABS: LACTIC ACID, VENOUS > 10.0 mmol/L (0.5-2.2)
[2021-02-26] MEDS ORDERED: LACTATED RINGERS 2,177.25 ML IV STA (19:52)
[2021-02-26] MEDS ORDERED: cefTRIAXone 2 GM in SODIUM CHLORIDE 0.9% MINIBAG 100 ML IV STA (19:53)
[2021-02-26 19:55] LABS: PLATELET ESTIMATE, MANUAL NORMAL (130-450,000) (NORMAL); PLATELET MORPHOLOGY NORMAL APPEARANCE (NORMAL)
[2021-02-26 19:59] LABS: BACTERIA,URINE Many /HPF (None Seen); SQUAMOUS EPITHELIAL CELL,UR NONE SEEN (<= Few); WBC,URINE >25 /HPF (0-5)
[2021-02-26] MEDS ORDERED: cefTRIAXone 2 GM VIAL ONE (20:03)
[2021-02-26 20:23] LABS: B. PARAPERTUSSIS- RESP PCR PAN NOT DETECTED; B. PERTUSSIS- RESP PCR PANEL NOT DETECTED; C. PNEUMONIAE- RESP PCR PANEL NOT DETECTED; CORONAVIRUS 229E-RESP PCR NOT DETECTED; CORONAVIRUS HKU1-RESP PCR NOT DETECTED; CORONAVIRUS NL63-RESP PCR NOT DETECTED; CORONAVIRUS OC43-RESP PCR NOT DETECTED; HUMAN METAPNEUMOVIRUS NOT DETECTED; INFLUENZA A- RESP PCR PANEL NOT DETECTED; INFLUENZA B - RESP PCR PANEL NOT DETECTED; M. PNEUMONIAE- RESP PCR PANEL NOT DETECTED; PARAINFLUENZA VIRUS 1 NOT DETECTED; PARAINFLUENZA VIRUS 2 NOT DETECTED; PARAINFLUENZA VIRUS 3 NOT DETECTED; PARAINFLUENZA VIRUS 4 NOT DETECTED; RHINOVIRUS/ENTEROVIRUS NOT DETECTED; RSV- RESP PCR PANEL NOT DETECTED; SARS-CoV-2 -RESP PCR PANEL NOT DETECTED
--- NOTE | 2021-02-26 20:54 | CT Report ---
PROCEDURE: HEAD WO INDICATIONS: altered TECHNIQUE: Noncontrast 4.5 mm thick angled axial sections acquired from the foramen magnum to the vertex. For r adiation dose reduction, the following was used: automated exposure control, adjustment of mA and/or kV according to patient size. COMPARISON: 03/22/2016 FINDINGS: Image quality: Excellent. CSF spaces: Basal cisterns are patent. No extra-axial fluid collections. Ventricles are normal in size and shape. Brain: No midline shift. No intracranial masses or hemorrhage. Moderate diffuse cerebral cortical atrophy and prominence of the ventricular system. Mild hypodensity in the periventricular white matte r bilaterally and a small lacunar infarct in the left thalamus. Schofield-white matter interface is normal . Skull and face: Calvarium and visualized facial bones are intact, without suspicious lesions. Sinuses: Visualized sinuses and mastoids are clear. IMPRESSION: 1. No CT evidence of acute intracranial process. 2. Age-related atrophy and chronic microvascular ischemic changes, stable. Reviewed by: Deanna Taylor MD on 02/26/2021 8:53 PM PDT Approved by: Deanna Taylor MD on 02/26/2021 8:53 PM PDT Station ID: [id number]
--- NOTE | 2021-02-26 21:01 | CT Report ---
PROCEDURE: CHEST WO INDICATIONS: hypoxemia, altered TECHNIQUE: Noncontrast images were acquired from the pulmonary apices to the posterior costophrenic angles. Mul tiplanar MIP reformats were then acquired. For radiation dose reduction, the following was used: au tomated exposure control, adjustment of mA and/or kV according to patient size. COMPARISON: None. Correlation is made to chest x-ray 01/21/2020 FINDINGS: Image quality: Excellent. Lungs and pleura: Mild peripheral subpleural reticulation thickening in the midlung zones and becomi ng more confluent at the lower lungs posteriorly where there is interstitial thickening and slight tr action bronchiectasis. There is a pneumatocele in the medial lingula. Noncalcified stellate left medi al apex pleural thickening. There is mild bronchial wall thickening in the lower lobes. Several small nodular tubular opacities a re seen throughout the lungs, most numerous in the right middle lobe. There are no dense consolidations or pleural effusions. Mediastinum: Heart size is normal. No pericardial effusion. No mediastinal adenopathy by size crit eria. Thoracic aorta and central pulmonary arteries are normal in size. Esophagus is normal in christianne perico. No hiatal hernia. Bones and chest wall: No suspicious bony lesions. Chronic appearing T7 vertebral body fracture. No a xillary or supraclavicular adenopathy by size criteria. The thyroid is normal in size and there are no incidental findings. Abdomen: Mild hepatic steatosis. Partially imaged mild left perinephric inflammation. There may be t race left hydronephrosis. IMPRESSION: 1. No acute consolidations or pleural effusions. 2. Findings suggesting mild interstitial lung disease in a pattern most suggestive of usual interstit ial pneumonitis. 3. There are several tubular nodules suggesting scattered bronchial impaction. There is also bronchia l wall thickening suggesting chronic bronchitis. 4. Possible, partially imaged left hydronephrosis. Clinical correlation recommended. 5. Mild hepatic steatosis. 6. Chronic appearing T7 vertebral body fracture. CLINICAL RECOMMENDATION STATEMENTS: In patients <35 years with an ITN detected on CT, MRI, or extrathyroidal ultrasound, the Committee re commends further evaluation with dedicated thyroid ultrasound if the nodule is ?1 cm and has no suspi cious imaging features, and if the patient has normal life expectancy. In patients ?35 years with an ITN detected on CT, MRI, or extrathyroidal ultrasound, the Committee re commends further evaluation with dedicated thyroid ultrasound if the nodule is ?1.5 cm and has no carlos picious imaging features, and if the patient has normal life expectancy. (ACR, 2014) Reviewed by: Deanna Taylor MD on 02/26/2021 9:00 PM PDT Approved by: Deanna Taylor MD on 02/26/2021 9:00 PM PDT Station ID: [id number]
--- NOTE | 2021-02-26 22:01 | CT Report ---
PROCEDURE: Abdomen/Pelvis WO INDICATIONS: pyelonephritis TECHNIQUE: Noncontrast 5 mm thick sections acquired from the diaphragms to the symphysis. 5 mm coronal and sagi ttal reformats were then performed. For radiation dose reduction, the following was used: automated exposure control, adjustment of mA and/or kV according to patient size. COMPARISON: None. FINDINGS: Image quality: Excellent. ABDOMEN: Lung bases: Mild fibrotic changes seen at the lung bases.. Heart size is normal. Solid organs: Liver is normal size and mildly diffusely hypodense. The unenhanced appearance the gal lbladder is relatively normal. No adrenal nodules. Normal spleen, pancreas, and right kidney. The left kidney demonstrates moderate hydronephrosis and mild parapelvic fat stranding. There are no intrarenal calculi. There is moderate to severe left hydroureter to the level of the pelvic inlet whe re it tapers normally. There are no visible ureteral calcifications. Peritoneum and bowel: There is abnormal morphology of the proximal colon with redundancy, ill-defined wall thickening, and trace pericolonic inflammation. No obstruction is seen. Nodes and vessels: No retroperitoneal or mesenteric adenopathy by size criteria. Aorta is normal ca liber with scattered calcification. The inferior vena cava is flattened. Miscellaneous: No ventral hernias. PELVIS: Genitourinary: Bladder wall thickness is normal. The uterus is absent. Miscellaneous: No inguinal hernias or adenopathy. Bones: No suspicious bony lesions. Degenerative disc height loss in the lower lumbar spine. Diffuse osteopenia. No vertebral body compression fractures. IMPRESSION: 1. Moderate left-sided hydronephrosis and hydroureter to the level of the pelvic inlet. An obstructin g calcification is not seen. This may imply recently passed calcification, noncalcified calculus, sof t tissue obstruction, or stricture. This could also be due to ascending infection and ureteral debris . Correlate with UA. 2. Abnormal morphology of the proximal colon suspicious for nonobstructing mass such as lymphoma or c olon carcinoma. Colonoscopy is recommended. 3. Mild hepatic steatosis. 4. Flattened inferior vena cava suggests clinical dehydration. Reviewed by: Deanna Taylor MD on 02/26/2021 10:00 PM PDT Approved by: Deanna Taylor MD on 02/26/2021 10:00 PM PDT Station ID: [id number]
[2021-02-26] MEDS ORDERED: SODIUM CHLORIDE FLUSH 0.9% 10 ML SYRINGE IVP PRN (22:06)
[2021-02-26] MEDS ORDERED: ONDANSETRON 4 MG/2 ML VIAL IVP PRN (22:06)
[2021-02-26] MEDS ORDERED: ACETAMINOPHEN 325 MG TABLET PO PRN (22:06)
--- NOTE | 2021-02-26 22:15 | HISTORY & PHYSICAL EXAMINATION ---
Chief Complaint - Chief Complaint Chief Complaint: Worsening confusion History of Present Illness - Admitted From Admitted From:: ED - History Obtained From History obtained from: ED provider and caregiver, Cristin, at bedside - History of Present Illness HPI Comment/Other: This is an 89-year-old white female who lives with her son and because they both have dementia they have caregivers. The patient history of hypothyroidism and takes thyroid medication and aspirin daily. Today a "lift assist" was requested of EMS and they arrived to found the patient confused and very hypotensive at the scene. EMS gave fluids and put the patient in Trendelenburg and upon presentation to the ED she was less confused and had a stabilized blood pressure. Work-up in the ED shows that she has bacteriuria, white blood count 18, lactic acid greater than 10, creat 2, imaging shows pyelonephritis of the left side along with hydronephrosis and a stone that is obstructing. The ED p marissamary reached out to the POA, son Lance by phone, and no transfer for nephrostomy tube or any surgery was requested. The patient's son would like her to be managed here with IV fluids and antibiotics. The ED provider discussed at length that without relief of the obstruction she has a very high risk of mortality and the son is aware and would like to focus on her comfort, and will be coming up from [place], [place]. Patient has received aggressive crystalloid resuscitation at 30 mL/kilogram in the ED and received ceftriaxone IV. She is being admitted for medical management of sepsis and complicated UTI from obstructive pyelonephritis. CODE STATUS is DNR, on a POLST form that was just completed 2 days ago by the PCP. 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 HEENT: reports: Tonsil/Adenoidectomy - Family & Social History Living arrangement: At home Living Situation: With spouse/s.o., With caregiver(s) - Substance History Use: Uses substance without health or social issues: NONE - POLST Patient has POLST: Yes POLST Status: DNR Meds/Allgy - Home Medications Home Medications: Ambulatory Orders Medication Instructions Recorded Confirmed Aspirin [Aspir-Low] 81 mg PO DAILY 03/22/16 03/28/18 Levothyroxine Sodium 75 mcg PO DAILY 03/28/18 02/26/21 - Allergies Allergies/Adverse Reactions: Allergies Allergy/AdvReac Type Severity Reaction Status Date / Time Sulfa (Sulfonamide Allergy Unknown Verified 02/26/21 19:21 Antibiotics) Review of Systems - Eyes Eyes: reports: Other (Light bothers her eyes, per caregiver) - All Other Systems All Other Systems: reports: Other (Unable tp ask pt due to patient's confusion on top of dementia. Caregiver is at bedside in her room and states that the marlene ent can normally feed herself, toilet herself, recognizes this caregiver and her but no one else.) Exam - Vital Signs Reviewed Vital Signs: Yes Vital Signs: Vital Signs x48h Temp Pulse Resp BP Pulse Ox 02/26/21 21:43 36.6 C 88 18 110/53 L 99 02/26/21 20:43 89 17 109/53 L 98 02/26/21 20:24 108 H 19 128/80 97 02/26/21 20:13 92 18 126/79 98 02/26/21 19:43 110 H 18 126/85 H 97 02/26/21 19:27 36.5 C 120 H 22 122/93 H 100 02/26/21 19:21 36.5 C 120 H 22 122/93 H 100 - Physical Exam General Appearance: positive: No acute distress Eyes Bilateral: positive: Normal inspection, EOMI, Other (Wearing glasses) ENT: positive: Dry mucous membranes, Other (Poor dental hygeine) Neck: positive: Nml inspection, No JVD Respiratory: positive: No respiratory distress, Breath sounds nml, Other (Cachechtic chest, ribs protrude) Cardiovascular: positive: Regular rate & rhythm, No murmur Abdomen: positive: Non-tender, Nml bowel sounds, No distention Skin: positive: Other (Tenting of skin of arms and neck seen) Extremities: positive: Other (1+ edema to knees bilat) Neurologic/Psychiatric: positive: Mood/affect nml, Disoriented to place, Disoriented to time (Non-focal motor exam) Sepsis Event Note (H) - Evaluation Current Stage of Sepsis: Sepsis - Sepsis Criteria Sepsis Criteria: Recorded Heart Rate greater than 90 bpm, WBC count greater than 12,000 or less than 4000, KNOWLEDGE MANAGEMENT ADVISOR: altered consciousness (unrelated to primary neuro pathology), Metabolic: lactate > 2 mmol/L Conclusion/Plan - Problem List (1) Sepsis Conclusion/Plan: She is found to have persistent tachycardia even after IV fluids given at the scene, extremely elevated lactic acid of greater than 10 and white count elevated at 18 with bacteriuria. We will continue with IV rehydration. Begin empiric IV antibiotics with Ceftriaxone, awaiting urine and blood culture results to adjust her meds. Follow CBC daily. Follow lactic acid level every 8 hours until normalized. (2) Complicated UTI (urinary tract infection) Conclusion/Plan: UTI has led to her sepsis and has been caused by the obstructive uropathy. Management is as above in #1 (3) Obstructive pyelonephritis Conclusion/Plan: The son Lance who is the POA does not want her transferred for urology management, wants no surgery for the patient. This may lead to permanent obstruction and also worsening renal function. Follow CBC daily. Follow BMP daily. Avoid nephrotoxins. Order straining of all urine to determine if she is passing any stones (4) BARRETT (acute kidney injury) Conclusion/Plan: The obstructive uropathy may lead to permanent renal dysfunction. Will continue IV fluid rehydration. Follow BMP daily. Avoid nephrotoxins. Chao for critical status and I's and O's fluid monitoring (5) Anemia Conclusion/Plan: Despite being dehydrated, she is not hemoconcentrated which is a big concern for underlying severe problem. Will order guaiac of stool test. We will obtain B12, folate levels and iron stores and replace if low (6) Hypothyroidism Conclusion/Plan: We will plan to continue her home thyroid dose. We will check a TSH level to see if replacement is adequate (7) Dementia Conclusion/Plan: As per history, this developed after she had a CVA - Lab Results Fish Bones: 02/26/21 19:22 02/26/21 19:22
[2021-02-26] MEDS: D5NS W/20 MEQ KCL 1,000 ML IV SCH (22:59)
[2021-02-26] MEDS: SODIUM CHLORIDE FLUSH 0.9% 10 ML SYRINGE IVP SCH (23:26)
[2021-02-27 05:29] LABS: BASOPHILS % (AUTO) 0.3 %; EOSINOPHILS # (AUTO) 0.1 10^3/uL (0.0-0.7); EOSINOPHILS % (AUTO) 0.4 %; HCT - HEMATOCRIT 26.4 % (37.0-47.0); HGB - HEMOGLOBIN 7.9 g/dL (12.0-16.0); LYMPHOCYTES # (AUTO) 3.4 10^3/uL (1.5-3.5); LYMPHOCYTES % (AUTO) 22.2 %; MEAN CORPUSCULAR HEMOGLOBIN 21.5 pg (27.0-31.0); MEAN CORPUSCULAR HGB CONC 29.9 g/dL (32.0-36.0); MEAN CORPUSCULAR VOLUME 71.9 fL (81.0-99.0); MEAN PLATELET VOLUME 10.4 fL (7.9-10.8); MONOCYTES # (AUTO) 0.7 10^3/uL (0.0-1.0); MONOCYTES % (AUTO) 4.7 %; NEUTROPHILS % (AUTO) 71.4 %; PLT - PLATELET COUNT 212 10^3/uL (130-450); RED BLOOD COUNT 3.67 10^6/uL (4.20-5.40); RED CELL DISTRIBUTION WIDTH 19.3 % (12.0-15.0); WHITE BLOOD COUNT 15.4 x10^3/uL (4.8-10.8)
[2021-02-27 05:45] LABS: CALCIUM 7.6 mg/dL (8.5-10.3); CREATININE 1.6 mg/dL (0.4-1.0); POTASSIUM 4.4 mmol/L (3.5-5.0)
[2021-02-27 05:56] LABS: THYROID STIMULATING HORMONE 2.89 uIU/mL (0.34-5.60)
[2021-02-27 06:07] LABS: FOLATE 7.19 ng/mL (5.90 - >24.8)
[2021-02-27] MEDS: cefTRIAXone 1 GM in SODIUM CHLORIDE 0.9% MINIBAG 100 ML IV SCH (08:34)
[2021-02-27] MEDS: FERROUS GLUCONATE 324 MG TABLET PO SCH (08:35)
[2021-02-27] MEDS: SODIUM CHLORIDE FLUSH 0.9% 10 ML SYRINGE IVP SCH ×2 (08:35→17:27)
[2021-02-27] MEDS: D5NS W/20 MEQ KCL 1,000 ML IV SCH (08:43)
[2021-02-27] MEDS ORDERED: LEVOTHYROXINE 75 MCG TABLET PO SCH (09:00)
[2021-02-27] MEDS: PANTOPRAZOLE 40 MG TABLET PO SCH (09:06)
--- NOTE | 2021-02-27 12:03 | PROVIDER PROGRESS NOTE ---
Assessment/Plan - Problem List (1) Sepsis Assessment/Plan: Improved, patient had normal range of blood pressure, lactic acid become normal range, WBC is trended down, patient's tachycardia is resolved. Blood culture is pending. We will continue antibiotics, continue gently intravenous IV fluids, continue laboratory and vital signs monitor (2) Complicated UTI (urinary tract infection) UA culture show positive gram negative rods, We will continue antibiotics Rocephin. (3) left Hydronephrosis CT reveal Obstructing calcification is not seen which imply stone was passed. Patient also denies any pain, patient had left moderate hydronephrosis. We will continue gently intravenous IV fluids. (4) BARRETT (acute kidney injury) Improved, creatinine is 1.6 from 2.1 at admission, We will continue intravenous IV fluids, And laboratory miller. (5)GI bleed occult blood stool test positive. how DPOA request no surgery procedure to pt. We will continue H&H monitor patient. hold blood thinner. Patient hemoglobin is 7.9 now. DPOA, pt's son, will come to the hospital, We will continue discussed with DPOA About care plan. (6)colon mass pt's CT scan of abdomen and pelvis show Abnormal morphologic at proximal colon suspicious for nonobstructing mass such as lymphoma or colon carcinoma. We will discuss the finding and care plan with the patient's DPOA when he come (7) Anemia occult blood stool test positive, Anemia study show significantly iron defic iency. 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 We will continue to support patient - Current Meds Current Meds: Current Medications Generic Name Dose Route Start Last Admin Trade Name Freq PRN Reason Stop Dose Admin Ferrous Gluconate 324 mg 02/27/21 09:00 02/27/21 08:35 Ferrous Gluconate 324 Mg Tablet PO 324 mg DAILYWM ILYA Administration Potassium Chloride/Dextrose/Sod Cl 1,000 mls @ 100 mls/hr 02/26/21 23:00 02/27/21 08:43 D5ns W/20 Meq Kcl IV 100 mls/hr .Q10H ILYA Administration Ceftriaxone Sodium 1 gm/ 100 mls @ 200 mls/hr 02/27/21 09:00 02/27/21 09:05 Sodium Chloride IV Infused DAILY ILYA Infusion Pantoprazole Sodium 40 mg 02/27/21 09:00 02/27/21 09:06 Pantoprazole 40 Mg Tablet PO 40 mg QDAC ILYA Administration Sodium Chloride 10 ml 02/27/21 01:00 02/27/21 08:35 Sodium Chloride Flush 0.9% 10 Ml Syringe IVP 10 ml 0100,0900,1700 ILYA Administration - Lab Result Fish Bone Diagrams: 02/27/21 05:10 02/27/21 05:10 - Additional Planning My Orders: My Active Orders 02/27/21 09:00 Ferrous Gluconate [Fergon] 324 mg PO DAILYWM Pantoprazole [Protonix] 40 mg PO QDAC 02/27/21 13:00 HEMOGLOBIN AND HEMATOCRIT [HEME] Q8H 02/27/21 21:00 HEMOGLOBIN AND HEMATOCRIT [HEME] Q8H Subjective - Subjective Patient Reports: Feeling Better Objective Vital Signs: Vital Signs - 24 hr 02/26/21 02/26/21 02/26/21 19:21 19:27 19:43 Temperature 36.5 C 36.5 C Heart Rate 120 H 120 H 110 H Heart Rate [ Brachial] Respiratory 22 22 18 Rate Blood Pressure 122/93 H 122/93 H 126/85 H Blood Pressure [Right Brachial artery] O2 Saturation 100 100 97 02/26/21 02/26/21 02/26/21 20:13 20:24 20:43 Temperature Heart Rate 92 108 H 89 Heart Rate [ Brachial] Respiratory 18 19 17 Rate Blood Pressure 126/79 128/80 109/53 L Blood Pressure [Right Brachial artery] O2 Saturation 98 97 98 02/26/21 02/26/21 02/26/21 21:43 22:28 22:50 Temperature 36.6 C 36.3 C L Heart Rate 88 88 Heart Rate [ 85 Brachial] Respiratory 18 19 20 Rate Blood Pressure 110/53 L 116/54 L Blood Pressure 118/56 L [Right Brachial artery] O2 Saturation 99 98 97 02/26/21 02/27/21 02/27/21 23:20 01:11 01:20 Temperature 36.4 C L 36.4 C L 36.2 C L Heart Rate 88 Heart Rate [ 88 78 Brachial] Respiratory 20 20 20 Rate Blood Pressure Blood Pressure 113/49 L 98/56 L [Right Brachial artery] O2 Saturation 96 96 98 02/27/21 02/27/21 03:20 08:15 Temperature 36.2 C L 36.4 C L Heart Rate Heart Rate [ 80 78 Brachial] Respiratory 20 18 Rate Blood Pressure Blood Pressure 100/51 L 122/52 L [Right Brachial artery] O2 Saturation 98 100 Oxygen O2 Source Room air I&O (Last 24 Hrs): Intake and Output Totals x24h 02/25/21 02/26/21 02/27/21 23:59 23:59 23:59 Intake Total 100 1693.333 Output Total 125 Balance 100 1568.333 General: Alert, No acute distress HEENT: Atraumatic Neck: Supple Lymphatic: no adenopathy Neuro: Alert, Non Focal Cardiovascular: Regular rate, Normal S1, Normal S2 Respiratory: Chest non-tender, No respiratory distress Abdomen: Normal bowel sounds, Soft Extremities: Normal pulses - Results Results: Laboratory Results WBC 15.4 x10^3/uL (4.8-10.8) H 02/27/21 05:10 RBC 3.67 10^6/uL (4.20-5.40) L 02/27/21 05:10 Hgb 7.9 g/dL (12.0-16.0) L 02/27/21 05:10 Hct 26.4 % (37.0-47.0) L 02/27/21 05:10 MCV 71.9 fL (81.0-99.0) L 02/27/21 05:10 MCH 21.5 pg (27.0-31.0) L 02/27/21 05:10 MCHC 29.9 g/dL (32.0-36.0) L 02/27/21 05:10 RDW 19.3 % (12.0-15.0) H 02/27/21 05:10 Plt Count 212 10^3/uL (130-450) 02/27/21 05:10 MPV 10.4 fL (7.9-10.8) 02/27/21 05:10 Neut # (Auto) 11.0 10^3/uL (1.5-6.6) H 02/27/21 05:10 Lymph # (Auto) 3.4 10^3/uL (1.5-3.5) 02/27/21 05:10 [place] # (Auto) 0.7 10^3/uL (0.0-1.0) 02/27/21 05:10 Eos # (Auto) 0.1 10^3/uL (0.0-0.7) 02/27/21 05:10 Baso # (Auto) 0.0 10^3/uL (0.0-0.1) 02/27/21 05:10 Absolute Nucleated RBC 0.00 x10^3/uL 02/27/21 05:10 Nucleated RBC % 0.0 /100WBC 02/27/21 05:10 Manual Slide Review Indicated 02/26/21 19:22 Platelet Estimate NORMAL (130-450,000) (NORMAL) 02/26/21 19:22 Platelet Morphology NORMAL APPEARANCE (NORMAL) 02/26/21 19:22 RBC Morph Micro Appear 1+ ANISOCYTOSIS (NORMAL) 1+ MICROCYTOSIS (NORMAL) 1+ HYPOCHROMASIA (NORMAL) 1+ OVALOCYTES (NORMAL) 02/26/21 19:22 RBC Morph Micro Appear 1+ ANISOCYTOSIS (NORMAL) 1+ MICROCYTOSIS (NORMAL) 1+ HYPOCHROMASIA (NORMAL) 1+ OVALOCYTES (NORMAL) 02/26/21 19:22 RBC Morph Micro Appear 1+ ANISOCYTOSIS (NORMAL) 1+ MICROCYTOSIS (NORMAL) 1+ HYPOCHROMASIA (NORMAL) 1+ OVALOCYTES (NORMAL) 02/26/21 19:22 RBC Morph Micro Appear 1+ ANISOCYTOSIS (NORMAL) 1+ MICROCYTOSIS (NORMAL) 1+ HYPOCHROMASIA (NORMAL) 1+ OVALOCYTES (NORMAL) 02/26/21 19:22 Sodium 141 mmol/L (135-145) 02/27/21 05:10 Potassium 4.4 mmol/L (3.5-5.0) 02/27/21 05:10 Chloride 111 mmol/L (101-111) 02/27/21 05:10 Carbon Dioxide 20 mmol/L (21-32) L 02/27/21 05:10 Anion Gap 10.0 (6-13) 02/27/21 05:10 BUN 46 mg/dL (6-20) H 02/27/21 05:10 Creatinine 1.6 mg/dL (0.4-1.0) H 02/27/21 05:10 Estimated GFR (MDRD) 30 (>89) L 02/27/21 05:10 Glucose 123 mg/dL (70-100) H 02/27/21 05:10 Lactic Acid 1.2 mmol/L (0.5-2.2) 02/27/21 05:10 Calcium 7.6 mg/dL (8.5-10.3) L 02/27/21 05:10 Iron 8 ug/dL (28-170) L 02/27/21 05:10 TIBC 176 ug/dL (250-450) L 02/27/21 05:10 % Saturation 5 % (20-50) L 02/27/21 05:10 Transferrin 126 mg/dL (192-382) L 02/27/21 05:10 Total Bilirubin 0.7 mg/dL (0.2-1.0) 02/26/21 19:22 AST 106 IU/L (10-42) H 02/26/21 19:22 ALT 54 IU/L (10-60) 02/26/21 19:22 Alkaline Phosphatase 147 IU/L (42-121) H 02/26/21 19:22 Total Protein 6.0 g/dL (6.7-8.2) L 02/26/21 19:22 Albumin 2.3 g/dL (3.2-5.5) L 02/26/21 19:22 Globulin 3.7 g/dL (2.1-4.2) 02/26/21 19:22 Albumin/Globulin Ratio 0.6 (1.0-2.2) L 02/26/21 19:22 Vitamin B12 777 pg/mL (180-914) 02/27/21 05:10 Folate 7.19 ng/mL (5.90 - >24.8) 02/27/21 05:10 TSH 2.89 uIU/mL (0.34-5.60) 02/27/21 05:10 Urine Color YELLOW 02/26/21 19:00 Urine Clarity CLOUDY (CLEAR) 02/26/21 19:00 Urine pH 6.0 PH (5.0-7.5) 02/26/21 19:00 Ur Specific [place] 1.015 (1.002-1.030) 02/26/21 19:00 Urine Protein 30 mg/dL (NEGATIVE) H 02/26/21 19:00 Urine Glucose (UA) NEGATIVE mg/dL (NEGATIVE) 02/26/21 19:00 Urine Ketones NEGATIVE mg/dL (NEGATIVE) 02/26/21 19:00 Urine Occult Blood MODERATE (NEGATIVE) H 02/26/21 19:00 Urine Nitrite POSITIVE (NEGATIVE) H 02/26/21 19:00 Urine Bilirubin NEGATIVE (NEGATIVE) 02/26/21 19:00 Urine Urobilinogen 0.2 (NORMAL) E.U./dL (NORMAL) 02/26/21 19:00 Ur Leukocyte Esterase LARGE (NEGATIVE) H 02/26/21 19:00 Urine RBC 11-25 /HPF (0-5) H 02/26/21 19:00 Urine WBC >25 /HPF (0-5) H 02/26/21 19:00 Ur Squamous Epith Cells NONE SEEN (<= Few) 02/26/21 19:00 Urine Bacteria Many /HPF (None Seen) H 02/26/21 19:00 Urine Culture Comments INDICATED 02/26/21 19:00 Nasal Adenovirus (PCR) NOT DETECTED 02/26/21 19:30 Nasal B. parapertussis DNA (PCR) NOT DETECTED 02/26/21 19:30 Nasal Coronavir 229E PCR NOT DETECTED 02/26/21 19:30 Nasal Coronavir HKU1 PCR NOT DETECTED 02/26/21 19:30 Nasal Coronavir NL63 PCR NOT DETECTED 02/26/21 19:30 Nasal Coronavir OC43 PCR NOT DETECTED 02/26/21 19:30 Nasal Enterovir/Rhinovir PCR NOT DETECTED 02/26/21 19:30 Nasal Influenza B PCR NOT DETECTED 02/26/21 19:30 Nasal Influenza A PCR NOT DETECTED 02/26/21 19:30 Nasal Parainfluen 1 PCR NOT DETECTED 02/26/21 19:30 Nasal Parainfluen 2 PCR NOT DETECTED 02/26/21 19:30 Nasal Parainfluen 3 PCR NOT DETECTED 02/26/21 19:30 Nasal Parainfluen 4 PCR NOT DETECTED 02/26/21 19:30 Nasal RSV (PCR) NOT DETECTED 02/26/21 19:30 Nasal B.pertussis DNA PCR NOT DETECTED 02/26/21 19:30 Nasal C.pneumoniae (PCR) NOT DETECTED 02/26/21 19:30 [place] Human Metapneumo PCR NOT DETECTED 02/26/21 19:30 Nasal M.pneumoniae (PCR) NOT DETECTED 02/26/21 19:30 Nasal SARS-CoV-2 (PCR) NOT DETECTED 02/26/21 19:30 Sepsis Event Note (H) - Evaluation Current Stage of Sepsis: Sepsis - Sepsis Criteria Sepsis Criteria: Recorded Heart Rate greater than 90 bpm, WBC count greater than 12,000 or less than 4000, [employer]ICE SUPER[employer]OR: altered consciousness (unrelated to primary neuro pathology), Metabolic: lactate > 2 mmol/L ABX Reporting Has patient been on IV antibiotics over the past 48 hours?: Yes Current Medications - Current Medications Current Medications: Active Medications Acetaminophen (Acetaminophen 325 Mg Tablet) 650 mg PO Q4HR PRN PRN Reason: Pain or Fever > 38C (100.4F) Ferrous Gluconate (Ferrous Gluconate 324 Mg Tablet) 324 mg PO DAILYWM [facility] Last Admin: 02/27/21 08:35 Dose: 324 mg Documented by: Ceftriaxone Sodium 1 gm/ (Sodium Chloride) 100 mls @ 200 mls/hr IV DAILY [facility] Last Infusion: 02/27/21 09:05 Dose: Infused Documented by: Sodium Chloride (Normal Saline 0.9%) 1,000 mls @ 100 mls/hr IV .Q10H [facility] Stop: 02/28/21 08:59 Last Admin: 02/27/21 12:25 Dose: 100 mls/hr Documented by: Levothyroxine Sodium (Levothyroxine 75 Mcg Tablet) 75 mcg PO QDAC [facility] Ondansetron HCl (Ondansetron 4 Mg/2 Ml Vial) 4 mg IVP Q6HR PRN PRN Reason: Nausea / Vomiting Pantoprazole Sodium (Pantoprazole 40 Mg Tablet) 40 mg PO QDAC [facility] Last Admin: 02/27/21 09:06 Dose: 40 mg Documented by: Sodium Chloride (Sodium Chloride Flush 0.9% 10 Ml Syringe) 10 ml IVP PRN PRN PRN Reason: NEEDED PER PROVIDER ORDERS Sodium Chloride (Sodium Chloride Flush 0.9% 10 Ml Syringe) 10 ml IVP 0100,0900,1700 [facility] Last Admin: 02/27/21 08:35 Dose: 10 ml Documented by: Aspirin [Aspir-Low] 81 mg PO DAILY 03/22/16 Levothyroxine [Synthroid] 88 mcg PO QDAC 02/27/21
[2021-02-27] MEDS: SODIUM CHLORIDE 0.9% 1,000 ML IV SCH ×2 (12:25→22:02)
[2021-02-27 13:49] LABS: HCT - HEMATOCRIT 27.7 % (37.0-47.0)
--- NOTE | 2021-02-27 16:52 | PHARMACY PROGRESS NOTE ---
- Best Possible Medication History Admit Date and Time: 02/26/212201 Processed by: Pharmacy Medication History completed: Yes Patient Interview: Completed Secondary Source(s): Pharmacy records, Insurance records As the person ultimately responsible for medication therapy, providers are able to order a medication from an existing home medication list in [facility] via the "Reconcile Routine" prior to Confirmation of that medication by sales support advisor. Such practice is discouraged except when the physician, in their clinical judgment, deems that a medical need exists for a medication without regard to previous use.
[2021-02-27 21:06] LABS: HCT - HEMATOCRIT 29.4 % (37.0-47.0); HGB - HEMOGLOBIN 8.3 g/dL (12.0-16.0)
[2021-02-28] MEDS: SODIUM CHLORIDE FLUSH 0.9% 10 ML SYRINGE IVP SCH ×3 (03:26→17:04)
[2021-02-28] MEDS: PANTOPRAZOLE 40 MG TABLET PO SCH (06:20)
[2021-02-28 06:33] LABS: BASOPHILS % (AUTO) 0.3 %; EOSINOPHILS # (AUTO) 0.2 10^3/uL (0.0-0.7); EOSINOPHILS % (AUTO) 1.8 %; HCT - HEMATOCRIT 26.4 % (37.0-47.0); HGB - HEMOGLOBIN 7.8 g/dL (12.0-16.0); LYMPHOCYTES # (AUTO) 2.8 10^3/uL (1.5-3.5); LYMPHOCYTES % (AUTO) 23.4 %; MEAN CORPUSCULAR HEMOGLOBIN 21.3 pg (27.0-31.0); MEAN CORPUSCULAR HGB CONC 29.5 g/dL (32.0-36.0); MEAN CORPUSCULAR VOLUME 72.1 fL (81.0-99.0); MEAN PLATELET VOLUME 10.2 fL (7.9-10.8); MONOCYTES # (AUTO) 0.7 10^3/uL (0.0-1.0); MONOCYTES % (AUTO) 5.7 %; NEUTROPHILS # (AUTO) 8.2 10^3/uL (1.5-6.6); NEUTROPHILS % (AUTO) 67.9 %; PLT - PLATELET COUNT 209 10^3/uL (130-450); RED BLOOD COUNT 3.66 10^6/uL (4.20-5.40); RED CELL DISTRIBUTION WIDTH 19.4 % (12.0-15.0); WHITE BLOOD COUNT 12.1 x10^3/uL (4.8-10.8)
[2021-02-28 06:40] LABS: CALCIUM 7.3 mg/dL (8.5-10.3); CREATININE 1.2 mg/dL (0.4-1.0); POTASSIUM 4.1 mmol/L (3.5-5.0)
[2021-02-28] MEDS ORDERED: LEVOTHYROXINE 75 MCG TABLET PO SCH (07:00)
--- NOTE | 2021-02-28 07:44 | PROVIDER PROGRESS NOTE ---
Assessment/Plan - Problem List (1) Sepsis Assessment/Plan: Secondary to complicated UTI. CT scan showed left moderate hydronephrosis. However no obstructing calcification was noted. At admission patient's lactic acid was 10. It has since trended down to 0.8. WBC improved from 18.3 at time of admission on 02/26 down to 12.1 today 02/28 On Rocephin 1 g IV daily. Anticipate discharge home tomorrow 03/01/21 on oral antibiotics. (2) Complicated UTI (urinary tract infection) Assessment/Plan: On Rocephin 1 g IV daily. Blood and urine cultures are no growth to date. (3) Colonic mass Assessment/Plan: CT scan of abdomen and pelvis showed abnormal morphologic at proximal colon suspicious for nonobstructing mass such as lymphoma or colon carcinoma. This was discussed with the patient, her son( ALONZO) and (has dementia) at bedside. The patient is adamant that she does not want any surgical procedures. Her son agrees with her decision. They are agreeable to a palliative care or hospice referral. (4) GI bleed Assessment/Plan: Likely secondary to colonic mass. Stool was positive for occult blood. This was discussed with the patient, her son( ALONZO) and (has dementia) at bedside. The patient is adamant that she does not want any surgical procedures. Her son agrees to her decision. They are agreeable to a palliative care or hospice referral. (5) Hypothyroidism Assessment/Plan: On Synthroid 88 mcg daily. TSH level was normal. (6) BARRETT (acute kidney injury) Assessment/Plan: Improving. Patient's creatinine at admission 2 days ago was 2.1. Today it is 1.2. We will continue gentle IV hydration with D5 plus half normal saline +20 mEq of potassium chloride at 83 mL/h. (7) Anemia Assessment/Plan: Likely secondary to GI bleed from colonic mass. This was discussed with the patient, her son( DPCAMERON) and (has dementia) at bedside. The patient is adamant that she does not want any surgical procedures. Her son agrees with her decision. They are agreeable to a palliative care or hospice referral. Patient's hemoglobin is slowly trending down. It was 9.9 at admission 2 days ago and is currently 7.8. Stool occult blood was positive. Will tansfuse packed red blood cells tomorrow prior to discharge She is on Protonix 40 mg p.o. daily. 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 We will continue to support patient - Current Meds Current Meds: Current Medications Generic Name Dose Route Start Last Admin Trade Name Gianna PRN Reason Stop Dose Admin Ferrous Gluconate 324 mg 02/27/21 09:00 02/27/21 08:35 Ferrous Gluconate 324 Mg Tablet PO 324 mg DAILYWM ILYA Administration Ceftriaxone Sodium 1 gm/ 100 mls @ 200 mls/hr 02/27/21 09:00 02/27/21 09:05 Sodium Chloride IV Infused DAILY ILYA Infusion Sodium Chloride 1,000 mls @ 100 mls/hr 02/27/21 13:00 02/28/21 06:46 Normal Saline 0.9% IV 02/28/21 08:59 100 mls/hr .Q10H ILYA Infusion Levothyroxine Sodium 75 mcg 02/28/21 07:00 02/28/21 06:20 Levothyroxine 75 Mcg Tablet PO 75 mcg QDAC ILYA Administration Pantoprazole Sodium 40 mg 02/27/21 09:00 02/28/21 06:20 Pantoprazole 40 Mg Tablet PO 40 mg QDAC ILYA Administration Sodium Chloride 10 ml 02/27/21 01:00 02/28/21 03:26 Sodium Chloride Flush 0.9% 10 Ml Syringe IVP Not Given 0100,0900,1700 ILYA - Lab Result Fish Bone Diagrams: 02/28/21 06:11 02/28/21 06:11 Subjective - Subjective Patient Reports: Other (Patient was resting comfortably in bed at time of exam. She denied any complaints. On examination of her legs/light palpation she cried out in pain.) Objective Vital Signs: Vital Signs - 24 hr 02/27/21 02/27/21 02/27/21 08:15 18:00 20:42 Temperature 36.4 C L 36.4 C L 36.2 C L Heart Rate [ 78 96 93 Brachial] Respiratory 18 18 16 Rate Blood Pressure [Left Brachial artery] Blood Pressure 122/52 L 105/42 L 112/44 L [Right Brachial artery] O2 Saturation 100 95 100 02/28/21 02/28/21 00:16 06:18 Temperature 36.9 C 36.1 C L Heart Rate [ 88 88 Brachial] Respiratory 18 18 Rate Blood Pressure 107/56 L 127/59 L [Left Brachial artery] Blood Pressure [Right Brachial artery] O2 Saturation 95 98 Oxygen O2 Source Room air I&O (Last 24 Hrs): Intake and Output Totals x24h 02/26/21 02/27/21 02/28/21 23:59 23:59 23:59 Intake Total 100 3465.000 1073.333 Output Total 550 500 Balance 100 2915.000 573.333 General: Alert, Mild distress, Moderate distress HEENT: PERRLA, EOMI Neck: Supple, No JVD Neuro: Alert, Non Focal Cardiovascular: Regular rate, Normal S1, Normal S2 Respiratory: Chest non-tender, No respiratory distress, Breath sounds nml Abdomen: Normal bowel sounds, Soft, No tenderness Rectal: Stool - Heme POS Extremities: No clubbing, No cyanosis, No edema Skin: No rashes, No breakdown - Results Results: Laboratory Results WBC 12.1 x10^3/uL (4.8-10.8) H 02/28/21 06:11 RBC 3.66 10^6/uL (4.20-5.40) L 02/28/21 06:11 Hgb 7.8 g/dL (12.0-16.0) L 02/28/21 06:11 Hct 26.4 % (37.0-47.0) L 02/28/21 06:11 MCV 72.1 fL (81.0-99.0) L 02/28/21 06:11 MCH 21.3 pg (27.0-31.0) L 02/28/21 06:11 MCHC 29.5 g/dL (32.0-36.0) L 02/28/21 06:11 RDW 19.4 % (12.0-15.0) H 02/28/21 06:11 Plt Count 209 10^3/uL (130-450) 02/28/21 06:11 MPV 10.2 fL (7.9-10.8) 02/28/21 06:11 Neut # (Auto) 8.2 10^3/uL (1.5-6.6) H 02/28/21 06:11 Lymph # (Auto) 2.8 10^3/uL (1.5-3.5) 02/28/21 06:11 [place] # (Auto) 0.7 10^3/uL (0.0-1.0) 02/28/21 06:11 Eos # (Auto) 0.2 10^3/uL (0.0-0.7) 02/28/21 06:11 Baso # (Auto) 0.0 10^3/uL (0.0-0.1) 02/28/21 06:11 Absolute Nucleated RBC 0.00 x10^3/uL 02/28/21 06:11 Nucleated RBC % 0.0 /100WBC 02/28/21 06:11 Manual Slide Review Indicated 02/26/21 19:22 Platelet Estimate NORMAL (130-450,000) (NORMAL) 02/26/21 19:22 Platelet Morphology NORMAL APPEARANCE (NORMAL) 02/26/21 19:22 RBC Morph Micro Appear 1+ ANISOCYTOSIS (NORMAL) 1+ MICROCYTOSIS (NORMAL) 1+ HYPOCHROMASIA (NORMAL) 1+ OVALOCYTES (NORMAL) 02/26/21 19:22 RBC Morph Micro Appear 1+ ANISOCYTOSIS (NORMAL) 1+ MICROCYTOSIS (NORMAL) 1+ HYPOCHROMASIA (NORMAL) 1+ OVALOCYTES (NORMAL) 02/26/21 19:22 RBC Morph Micro Appear 1+ ANISOCYTOSIS (NORMAL) 1+ MICROCYTOSIS (NORMAL) 1+ HYPOCHROMASIA (NORMAL) 1+ OVALOCYTES (NORMAL) 02/26/21 19:22 RBC Morph Micro Appear 1+ ANISOCYTOSIS (NORMAL) 1+ MICROCYTOSIS (NORMAL) 1+ HYPOCHROMASIA (NORMAL) 1+ OVALOCYTES (NORMAL) 02/26/21 19:22 Sodium 141 mmol/L (135-145) 02/28/21 06:11 Potassium 4.1 mmol/L (3.5-5.0) 02/28/21 06:11 Chloride 114 mmol/L (101-111) H 02/28/21 06:11 Carbon Dioxide 20 mmol/L (21-32) L 02/28/21 06:11 Anion Gap 7.0 (6-13) 02/28/21 06:11 BUN 30 mg/dL (6-20) H 02/28/21 06:11 Creatinine 1.2 mg/dL (0.4-1.0) H 02/28/21 06:11 Estimated GFR (MDRD) 42 (>89) L 02/28/21 06:11 Glucose 88 mg/dL (70-100) 02/28/21 06:11 Lactic Acid 0.8 mmol/L (0.5-2.2) 02/28/21 06:11 Calcium 7.3 mg/dL (8.5-10.3) L 02/28/21 06:11 Iron 8 ug/dL (28-170) L 02/27/21 05:10 TIBC 176 ug/dL (250-450) L 02/27/21 05:10 % Saturation 5 % (20-50) L 02/27/21 05:10 Transferrin 126 mg/dL (192-382) L 02/27/21 05:10 Total Bilirubin 0.7 mg/dL (0.2-1.0) 02/26/21 19:22 AST 106 IU/L (10-42) H 02/26/21 19:22 ALT 54 IU/L (10-60) 02/26/21 19:22 Alkaline Phosphatase 147 IU/L (42-121) H 02/26/21 19:22 Total Protein 6.0 g/dL (6.7-8.2) L 02/26/21 19:22 Albumin 2.3 g/dL (3.2-5.5) L 02/26/21 19:22 Globulin 3.7 g/dL (2.1-4.2) 02/26/21 19:22 Albumin/Globulin Ratio 0.6 (1.0-2.2) L 02/26/21 19:22 Vitamin B12 777 pg/mL (180-914) 02/27/21 05:10 Folate 7.19 ng/mL (5.90 - >24.8) 02/27/21 05:10 TSH 2.89 uIU/mL (0.34-5.60) 02/27/21 05:10 Urine Color YELLOW 02/26/21 19:00 Urine Clarity CLOUDY (CLEAR) 02/26/21 19:00 Urine pH 6.0 PH (5.0-7.5) 02/26/21 19:00 Ur Specific [place] 1.015 (1.002-1.030) 02/26/21 19:00 Urine Protein 30 mg/dL (NEGATIVE) H 02/26/21 19:00 Urine Glucose (UA) NEGATIVE mg/dL (NEGATIVE) 02/26/21 19:00 Urine Ketones NEGATIVE mg/dL (NEGATIVE) 02/26/21 19:00 Urine Occult Blood MODERATE (NEGATIVE) H 02/26/21 19:00 Urine Nitrite POSITIVE (NEGATIVE) H 02/26/21 19:00 Urine Bilirubin NEGATIVE (NEGATIVE) 02/26/21 19:00 Urine Urobilinogen 0.2 (NORMAL) E.U./dL (NORMAL) 02/26/21 19:00 Ur Leukocyte Esterase LARGE (NEGATIVE) H 02/26/21 19:00 Urine RBC 11-25 /HPF (0-5) H 02/26/21 19:00 Urine WBC >25 /HPF (0-5) H 02/26/21 19:00 Ur Squamous Epith Cells NONE SEEN (<= Few) 02/26/21 19:00 Urine Bacteria Many /HPF (None Seen) H 02/26/21 19:00 Urine Culture Comments INDICATED 02/26/21 19:00 Nasal Adenovirus (PCR) NOT DETECTED 02/26/21 19:30 Nasal B. parapertussis DNA (PCR) NOT DETECTED 02/26/21 19:30 Nasal Coronavir 229E PCR NOT DETECTED 02/26/21 19:30 Nasal Coronavir HKU1 PCR NOT DETECTED 02/26/21 19:30 Nasal Coronavir NL63 PCR NOT DETECTED 02/26/21 19:30 Nasal Coronavir OC43 PCR NOT DETECTED 02/26/21 19:30 Nasal Enterovir/Rhinovir PCR NOT DETECTED 02/26/21 19:30 Nasal Influenza B PCR NOT DETECTED 02/26/21 19:30 Nasal Influenza A PCR NOT DETECTED 02/26/21 19:30 Nasal Parainfluen 1 PCR NOT DETECTED 02/26/21 19:30 Nasal Parainfluen 2 PCR NOT DETECTED 02/26/21 19:30 Nasal Parainfluen 3 PCR NOT DETECTED 02/26/21 19:30 Nasal Parainfluen 4 PCR NOT DETECTED 02/26/21 19:30 Nasal RSV (PCR) NOT DETECTED 02/26/21 19:30 Nasal B.pertussis DNA PCR NOT DETECTED 02/26/21 19:30 Nasal C.pneumoniae (PCR) NOT DETECTED 02/26/21 19:30 [place] Human Metapneumo PCR NOT DETECTED 02/26/21 19:30 Nasal M.pneumoniae (PCR) NOT DETECTED 02/26/21 19:30 Nasal SARS-CoV-2 (PCR) NOT DETECTED 02/26/21 19:30 Sepsis Event Note (H) - Evaluation Current Stage of Sepsis: Sepsis - Sepsis Criteria Sepsis Criteria: Recorded Heart Rate greater than 90 bpm, WBC count greater than 12,000 or less than 4000, MEDICAL CONCIERGE: altered consciousness (unrelated to primary neuro pathology), Metabolic: lactate > 2 mmol/L ABX Reporting Has patient been on IV antibiotics over the past 48 hours?: Yes
[2021-02-28] MEDS: cefTRIAXone 1 GM in SODIUM CHLORIDE 0.9% MINIBAG 100 ML IV SCH (08:12)
[2021-02-28] MEDS: FERROUS GLUCONATE 324 MG TABLET PO SCH (08:14)
[2021-02-28] MEDS: D5.45NS W/20 MEQ KCL 1,000 ML IV SCH ×2 (11:35→23:09)
[2021-03-01] MEDS: SODIUM CHLORIDE FLUSH 0.9% 10 ML SYRINGE IVP SCH ×3 (03:23→16:52)
[2021-03-01 05:41] LABS: BASOPHILS # (AUTO) 0.1 10^3/uL (0.0-0.1); BASOPHILS % (AUTO) 0.4 %; EOSINOPHILS # (AUTO) 0.4 10^3/uL (0.0-0.7); EOSINOPHILS % (AUTO) 2.8 %; HCT - HEMATOCRIT 29.3 % (37.0-47.0); HGB - HEMOGLOBIN 8.5 g/dL (12.0-16.0); LYMPHOCYTES # (AUTO) 3.5 10^3/uL (1.5-3.5); LYMPHOCYTES % (AUTO) 26.9 %; MEAN CORPUSCULAR HEMOGLOBIN 21.1 pg (27.0-31.0); MEAN CORPUSCULAR VOLUME 72.7 fL (81.0-99.0); MEAN PLATELET VOLUME 10.4 fL (7.9-10.8); MONOCYTES # (AUTO) 0.6 10^3/uL (0.0-1.0); MONOCYTES % (AUTO) 4.5 %; NEUTROPHILS # (AUTO) 8.3 10^3/uL (1.5-6.6); NEUTROPHILS % (AUTO) 64.6 %; PLT - PLATELET COUNT 223 10^3/uL (130-450); RED BLOOD COUNT 4.03 10^6/uL (4.20-5.40); RED CELL DISTRIBUTION WIDTH 19.2 % (12.0-15.0); WHITE BLOOD COUNT 12.9 x10^3/uL (4.8-10.8)
[2021-03-01 05:50] LABS: CALCIUM 7.5 mg/dL (8.5-10.3); CREATININE 1.1 mg/dL (0.4-1.0); POTASSIUM 4.6 mmol/L (3.5-5.0)
[2021-03-01] MEDS: PANTOPRAZOLE 40 MG TABLET PO SCH (06:12)
[2021-03-01] MEDS ORDERED: LEVOTHYROXINE 88 MCG TABLET PO SCH (07:00)
--- NOTE | 2021-03-01 07:31 | Discharge Plan ---
Discharge Plan Problem Reviewed?: Yes Disposition: Home Health Service Condition: Fair Prescriptions: Ciprofloxacin [Cipro] 250 mg PO Q12H 7 Days #14 tablet Diet: Soft Activity Restrictions: Activity as Tolerated Assistance Devices: Wheelchair, Walker Health Concerns: You were admitted on 02/26/21 with worsening confusion. Work-up showed that you had pyelonephritis. You were started on antibiotics with ceftriaxone which was continued for the duration of your 3-day hospital stay. You steadily improved in this time. By the day of discharge your white blood cell count had improved from 18 down to 12. Your renal function specifically creatinine had improved from 2 down to 1.1. You were prescribed Cipro 250mg twice daily x7 days upon discharge. The CT scan also showed that you had a colonic mass which could be due to colon cancer or lymphoma. This was discussed with you and your son Lance at bedside. You were clear on the fact that you did not want any surgical procedures. There was also blood noted in your stool for which you did not want any intervention. Being discharged back home where you have caregivers for 20 hours in a day. We will place palliative care referral to follow-up with you in the outpatient setting. By the day of discharge your hemoglobin was 8.5 so you will not transfused any blood products. The above was explained to you with your son at bedside. He expressed understanding and was agreeable with the plan. No Smoking: If you smoke, Please STOP! Call for help. Follow-up with: Griselda Mena MD [Primary Care Provider] -
--- NOTE | 2021-03-01 07:31 | DISCHARGE SUMMARY ---
Discharge Summary Admit Date: 02/26/21 Discharge Date: 03/01/21 Discharging Provider: Stewart Belle Primary Care Provider: Griselda Mena Code Status: Do Not Attempt Resuscitation Condition at Discharge: Fair Discharge Disposition: 06 Home Health Service - DIAGNOSES Admission Diagnoses: Sepsis Complicated UTI Pyelonephritis Acute kidney injury Anemia Hypothyroidism Dementia Discharge Diagnoses with Status of Each Condition: Sepsis: Resolve/Improved Complicated UTI: Resolve/Improved Pyelonephritis: Resolve/Improved Colonic mass: Patient declined intervention. Palliative care referral in the outpatient setting GI Bleed: Stable Hgb 8.5 upon discharge. Acute kidney injury: Resolve/Improved Anemia: Stable Hypothyroidism: Chronic. Stable Dementia: Mild. Chronic - HPI History of Present Illness: This is an 89-year-old white female who lives with her son and because they both have dementia they have caregivers. The patient history of hypothyroidism and takes thyroid medication and aspirin daily. Today a "lift assist" was requested of EMS and they arrived to found the patient confused and very hypotensive at the scene. EMS gave fluids and put the patient in Trendelenburg and upon presentation to the ED she was less confused and had a stabilized blood pressure. Work-up in the ED shows that she has bacteriuria, white blood count 18, lactic acid greater than 10, creat 2, imaging shows pyelonephritis of the left side along with hydronephrosis and a stone that is obstructing. The ED provider reached out to the [facility] by phone, and no transfer for nephrostomy tube or any surgery was requested. The patient's son would like her to be managed here with IV fluids and antibiotics. The ED provider discussed at length that without relief of the obstruction she has a very high risk of mortality and the son is aware and would like to focus on her comfort, and will be coming up from [place], [place]. Patient has received aggressive crystalloid resuscitation at 30 mL/kilogram in the ED and received ceftriaxone IV. She is being admitted for medical management of sepsis and complicated UTI from obstructive pyelonephritis. CODE STATUS is DNR, on a POLST form that was just completed 2 days ago by the PCP. - HOSPITAL COURSE Hospital Course: Patient was started on Rocephin 1g IV daily. This was maintained through the course of her 3-day hospital stay. E. coli subsequently grew on urine cultures. Was pansensitive. She was discharged on Cipro to 50 mg p.o. daily x7 days. Her white blood cell count improved from 18 down to 12 by the day of discharge. Her creatinine improved from 2.1 down to 1.1. The CT scan also showed a colonic mass for which lymphoma versus colon cancer was suspected. This finding was discussed with the patient while his son was at bedside. The patient was very adamant that she did not want any surgical intervention. His son supported her decision. A palliative care referral in the outpatient setting was made. The patient was positive on a stool occult blood test. Her hemoglobin was monitored and by discharge it was 8.5. As a result she was not transfused any blood products. She was discharged in stable condition. - ALLERGIES Allergies/Adverse Reactions: Allergies Allergy/AdvReac Type Severity Reaction Status Date / Time Sulfa (Sulfonamide Allergy Unknown Verified 02/26/21 19:21 Antibiotics) - MEDICATIONS Home Medications: Ambulatory Orders Medication Instructions Recorded Confirmed Levothyroxine [Synthroid] 88 mcg PO QDAC 02/27/21 02/27/21 Ciprofloxacin [Cipro] 250 mg PO Q12H 7 Days #14 tablet 03/01/21 - PHYSICAL EXAM AT DISCHARGE General Appearance: positive: No acute distress, Alert Eyes Bilateral: positive: PERRL, EOMI ENT: positive: No signs of dehydration Neck: positive: No JVD, Trachea midline Respiratory: positive: Chest non-tender, No respiratory distress, Breath sounds nml. negative: Wheezes, Rales, Rhonchi Cardiovascular: positive: Regular rate & rhythm, No murmur Abdomen: positive: Non-tender, No organomegaly, Nml bowel sounds, No distention. negative: Guarding, Rebound Back: positive: Nml inspection Skin: positive: Color nml, No rash, Warm, Dry Extremities: positive: Non-tender, Full ROM, No pedal edema Neurologic/Psychiatric: positive: Oriented x3, Mood/affect nml - LABS Result Diagrams: 03/01/21 05:22 03/01/21 05:22 - SEPSIS Current Stage of Sepsis: Sepsis Sepsis Criteria: Recorded Heart Rate greater than 90 bpm, WBC count greater than 12,000 or less than 4000, VP CLINICAL RESEARCH: altered consciousness (unrelated to primary neuro pathology), Metabolic: lactate > 2 mmol/L - TIME SPENT Time Spent in Discharge (Minutes): 25
[2021-03-01] MEDS: FERROUS GLUCONATE 324 MG TABLET PO SCH (08:25)
[2021-03-01] MEDS: cefTRIAXone 1 GM in SODIUM CHLORIDE 0.9% MINIBAG 100 ML IV SCH (08:29)
[2021-03-01] MEDS: D5.45NS W/20 MEQ KCL 1,000 ML IV SCH (12:02)
[2021-03-01 16:16] VITALS: BP 113/73
== END 2021-03-01 19:19 | disposition home health service (06) | DRG 872 ==
LOC: EDUNIT# → ED 19:06 → MS2 22:02
PROVIDERS: ADMIT Internal Medicine; ATTEND Internal Medicine
DX: A41.9 Sepsis, unspecified organism (principal); N11.1 Chronic obstructive pyelonephritis; R65.21 Severe sepsis with septic shock; G93.41 Metabolic encephalopathy; A41.51 Sepsis due to Escherichia coli [E. coli]; N17.9 Acute kidney failure, unspecified; N13.6 Pyonephrosis; E87.2 Acidosis; R65.20 Severe sepsis without septic shock; D50.0 Iron deficiency anemia secondary to blood loss (chronic); I69.911 Memory deficit following unspecified cerebrovascular disease; Z20.822 Contact with and (suspected) exposure to COVID-19; E86.0 Dehydration; K63.89 Other specified diseases of intestine; R19.5 Other fecal abnormalities; Z66 Do not resuscitate; E03.9 Hypothyroidism, unspecified; Z51.5 Encounter for palliative care; Z79.82 Long term (current) use of aspirin; Z79.899 Other long term (current) drug therapy
CPT/HCPCS: 36415; 51701; 70450; 71250; 74176; 80048; 80053; 81001; 82272; 82607; 82746; 83540; 83605; 84443; 84466; 85014; 85018; 85025; 87040; 87077; 87086; 87181; 87631; 96365; 99285; 99291; A9270; J7120; 0202U

== ENCOUNTER 2021-03-03 11:00 | Outpatient (CLI) | payer MEDICARE, OTHER ==
--- NOTE | 2021-03-03 12:57 | CONSULTATION NOTE ---
Palliative Care Consultation - Referral Referring Provider: Dr. Griselda Mena Time of Visit: 06-12 Referral setting: Home Referral Reason: Failure to Thrive/Abdominal Mass/GI bleed/UTI/Sepsis - Information Sources Records reviewed: Previous records reviewed History/Review of Systems obtained from: Family (son Lance and LAURA Manzo provided most of history), Caregiver (Tara) Exam limitations: Clinical condition (patient difficult to engage; STM deficits; in dark room in bed) - History of Present Illness Brief History of Present Illness: This is an 89-year-old woman who was originally referred from her primary care provider, as she had been presenting with failure to thrive, with increasing lethargy, weakness, decreased intake, and weight loss. Unfortunately she continued to deteriorate, and was admitted acutely on 02/26/2021 as she did become hypotensive and hypoxic hypoxic, and was admitted with an elevated white count of 18.3, hemoglobin 9.9, worsening kidney function, acute encephalopathy, after discussion with son, she was admitted for fluids and IV antibiotics with comfort is the goal. She was diagnosed with sepsis and complicated UTI from obstructive pyelonephritis. She was discharged on 03/01, continues to be quite weak, has spent most the time in bed, of note when she was being worked up, it was found that she had a colonic mass, with presumed diagnosis of lymphoma versus colon cancer, the patient did have a heme positive stool. She has not transfused with any blood products, she was treated with antibiotics and fluids, again with the goal to transition home for comfort focused care. Patient is seen in bed, she does have baseline dementia and has been having functional and cognitive decline. She was originally diagnosed with dementia in 2016, most likely vascular in origin as she has not had any rapid decline. Her son reports is mostly short-term memory, they were actually managing fairly well as her does have severe dementia, with caregiving about 8 to 12 hours and no care overnight. He had been visiting for the last 2 3 weeks prior to her hospitalization had just returned home, and had noted her decline, and in review of goals at this point recognizes most likely of malignancy, patient herself had been quite clear at the hospital she did not want any surgery, the you "got to of something", and when reviewed goals today, she does appear to have insight that she is declining, she denies any fear or concerns, and her son and caregivers feel a hospice approach would be consistent with what she is expressed prior. Patient does not seem in any kind of severe distress, her breath sounds are to decrease throughout, she does have a dry cough. On examination her abdomen is soft, she did have a bowel movement yesterday, no masses were appreciated she did have some mild tenderness in the left lower quadrant with deep palpation. In review of the CT scan it is the proximal colon suspicious for the nonobstructing mass. Since she has been home she has been sleeping mostly, she likes the room dark, she reluctantly participated in exam. She denies depression or anxiety, she denies pain or distress. She did asked to use the bathroom but was incontinent before we could get her up. They have been mostly doing a max assist to the wheelchair, she has been taking a few bites and small amounts of fluids. She has not had any choking and has been able to take her antibiotics.She has had the Transmitter Operator come, Patient does not remember hospitalization, she does understand that she is seriously ill, and when asked what we can do for her, is "leave me alone". Medical/Surgical History - Past Medical History Respiratory: reports: Other (scans show interstitial fibrosis) Neuro: Dementia (2016 started; has been mostly stable; deterioration over last several weeks), CVA Endocrine/Autoimmune: reports: HyPOthyroidism : reports: Renal insuffiency Musculoskeletal: reports: Osteoarthritis MRSA Hx?: No - Past Surgical History /TILE HELPER: reports: Hysterectomy HEENT: reports: Tonsil/Adenoidectomy - Substance History Use: Uses substance without health or social issues: NONE Social History - Living Situation Living Situation: With spouse/s.o., With caregiver(s) Support System: Patient has lived at home with her spouse who is 89 "RL" he was an [employer] pilot. 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 When they retired they took cruises all over the world up to about 15 years ago. She developed more prominent dementia in 2016, but it had not really progressed but RL was her caregiver until he had a fall and was in rehab 3 months. They then employed [employer] but have increased hours over time, she would continously fire them. They found a good match with [facility], and now BRANDY is with worsening more severe dementia, very [place] and not very aware of current situation. Lance is their only son, with the multiple care issues over the last few years, has been very stressful as he has had to respond but feels his current caregiving team has been excellent and working, plan now is for 21/02 care and depending on how quick her demise, he will return back to [place]. He does have cameras so can track them, good relationship with [facility] staff, and his Anais is currently here also, with hope to return home. He had just been out 2 weeks to help with caregiving to cover a vacation, and had to turn around in 24 hours to come back. There are not financial concerns. Family History - Family History Family History: Mother: ( of old age; brother with DM), Father: , Other family: Alive and Well (one son) Medications/Allergies - Medications Home Medications: Ambulatory Orders Medication Instructions Recorded Confirmed Levothyroxine [Synthroid] 88 mcg PO QDAC 02/27/21 03/03/21 Ciprofloxacin [Cipro] 250 mg PO Q12H 7 Days #14 tablet 03/01/21 03/03/21 - Allergies Allergies/Adverse Reactions: Allergies Allergy/AdvReac Type Severity Reaction Status Date / Time Sulfa (Sulfonamide Allergy Unknown Verified 02/26/21 19:21 Antibiotics) Review of Systems - Constitutional Constitutional: reports: Fatigue (8.5), Malaise (several weeks), Weakness, Poor appetite (eating bites only; sips of fluid CG reports about 8 ounces /shift), Weight loss - Cardiovascular Cardiovascular: reports: Edema (in ankles / feet), Decr. exercise tolerance (mostly bedbound since home; transfering to w/c then bathroom with max assist). denies: Chest pain - Respiratory Respiratory: reports: Cough (dry during visit; denies problematic). denies: SOB at rest - Gastrointestinal Gastrointestinal: reports: Poor appetite, Early satiety. denies: Abdominal pain, Abdominal distention, Constipation (bm charted yesterday), Nausea, Reflux/heartburn - Genitourinary Genitourinary: reports: Incontinence (worsening; only occasional before hospitalization) - Musculoskeletal Musculoskeletal: reports: Stiffness, Muscle weakness - Integumentary Integumentary: reports: Dryness - Neurological Neurological: reports: General weakness, Memory problems (little recall of hospitalization or why she is in bed) - Psychiatric Psychiatric: reports: Depression (appears withdrawn and quiet; "thumbs up or down" for answers; keeps eyes closed most of visit). denies: Anxiety - Endocrine Endocrine: reports: Hypothyroidism - Hematologic/Lymphatic Hematologic/Lymph: reports: Anemia, Recurrent infections (UTI) - All Other Systems All Other Systems: reports: Other (limited by patients' dementia) Physical Exam - Vital Signs Temperature: 97.3 C Pulse Rate: 93 Respiratory Rate: 18 O2 Saturation: 97 (ra @ rest) Blood Pressure: 112/62 - Physical Exam General Appearance: positive: Mild distress (did not like getting examined), Lethargic Eyes Bilateral: positive: Other (kept eyes closed most of exam; did open when asked) ENT: negative: Oral lesions Neck: positive: Trachea midline Cardiovascular: positive: Regular rate & rhythm, Tachycardia Respiratory: positive: No respiratory distress, Diminished in bases. negative: Wheezes, Rales, Rhonchi Abdomen: positive: Soft, Nml bowel sounds, Tenderness (LLQ). negative: Hepat omegaly, Mass, Distended, Obese Skin: positive: Pallor, Dryness. negative: Pressure wound Extremities: positive: Pedal edema (right greater than left; pooling in feet/ankles) Neurologic/Psychiatric: positive: Disoriented to time, Depressed mood/affect, Flat affect Palliative Care - POLST Patient has POLST: Yes POLST Status: DNR, Comfort Measures Pain: No pain Sleep: Other (sleeping most of the time since discharge) Constipation: No (last BM yesterday) Performance Status: Patient up to a few weeks ago was ambulatory from room to room, used walker, they were without CGs at night and managed. This is very different now, needs 24/7 assistance and oversight. She has been mostly bedbound. She has had slow functional decline before the acute decline, sleeping more, more sedentary. - Palliative Care Discussion: Met with patient son Lance and his Anais, patient does not present with decision-making capacity or ability to participate in conversation regarding goals of care. Her has severe dementia, and is very hard of hearing. Counseling provided regarding palliative versus hospice care, given review of goals and patients ongoing decline, in agreement with hospice philosophy. He does recognize the seriousness of her illness, most likely a malignancy, more in alignment with colon cancer, given positive stool. She has had ongoing functional decline, and now is mostly bedbound. We did update the POLST with DN AR/DNI and comfort measures. He does have 24/7 caregivers lined up, is hoping to be able to return home to [place], but does want to be here for her time of . We discussed most likely would be able to have a better idea of how quick her decline over the next few days, and with hospice support can keep her at home. He is very trusting of his current caregiving team, reports they do have resources, he is somewhat burned out has he is the only child and both his parents have had lots of issues since last few years. Results - Lab Results Lab results reviewed: Yes Impression and Recommendations - Palliative Care Impression: This is an 89-year-old woman who has had ongoing functional decline, presented acutely with UTI and sepsis, finishing antibiotics, patient on work-up at hospital, was found to have an abdominal mass. Suspect most likely a colon cancer with heme positive stools, it is not obstructing. She does not present with any distress, other than significant fatigue and weakness. Palliative care meeting with family to define goals of care, will transition to hospice support. Recommendations/Counseling Done: 1. Anorexia. This is worsened over the last several weeks, does appear she has had decreased intake over several months. She had been functional up to the last few weeks, I discussed goals of care for focus on comfort. And encouraged to feed and offer food and fluids for comfort only, not to force her. 2. Abdominal mass. Currently patient did have a BM yesterday, patient does not present with any abdominal pain or discomfort except for deep palpation in her left lower quadrant. Patient at this point does not indicate any need for pain medication. Hospice will be admitting tomorrow, discussed comfort care kit and logistics around as needed dosing with paid caregivers. He will explore this with [facility] later today. 3. Advanced care planning. It does appear hospice would be in alignment with her goals, patient has had a fairly acute event with her UTI of sepsis, and underlying malignancy and anemia adding to her ongoing decline. POLST with DN AR/DNI and comfort measures filled out, and hospice referral made. 60 minutes with greater than 50% of this done in counseling regarding palliative care versus hospice, goals of care, introduction of the hospice team and philosophy, staffed with hospice medical claims manager, anticipatory guidance provided as well as POLST completed
== END 2021-03-03 11:01 | disposition home or self-care (01) ==
LOC: PC 11:00
PROVIDERS: ATTEND Nurse Practitioner Adult Health
DX: Z51.5 Encounter for palliative care (principal); F03.90 Unspecified dementia, unspecified severity, without behavioral disturbance, psychotic disturbance, mood disturbance, and anxiety; R63.0 Anorexia; R19.00 Intra-abdominal and pelvic swelling, mass and lump, unspecified site; Z66 Do not resuscitate
CPT/HCPCS: 99344

== ENCOUNTER 2021-03-24 10:37 | Outpatient (CLI) | payer MEDICARE, OTHER | END 2021-03-24 10:38 | disposition EMS.NT | LOC: EMS 10:37 | DX: Z03.89 Encounter for observation for other suspected diseases and conditions ruled out (principal) ==

== ENCOUNTER 2021-04-30 13:25 | Outpatient (CLI) | payer MEDICARE, OTHER | END 2021-04-30 13:26 | disposition EMS.NT | LOC: EMS 13:25 | DX: Z03.89 Encounter for observation for other suspected diseases and conditions ruled out (principal) ==

== ENCOUNTER 2021-08-11 16:25 | Outpatient (CLI) | payer MEDICARE, OTHER | END 2021-08-11 16:26 | disposition home or self-care (01) | LOC: LAB.R 16:25 | PROVIDERS: ATTEND Family Medicine | DX: U07.1 COVID-19 (principal) ==